=== PATIENT | male | born 1955 | race Caucasian/White ===

== ENCOUNTER 2019-04-11 22:38 | Observation (INO) ==
[2019-04-12 01:56] LABS: BASO# 0.02 X1000 (0.0-0.2); BASO% 0.2 % (0.0-0.8); EOS# 0.14 X1000 (0.0-0.7); EOS% 1.5 % (0.0-10.0); HEMATOCRIT 47.5 % (42.0-52.0); HEMOGLOBIN 16.5 g/dL (14.0-18.0); IMM GRAN# 0.02 X1000 (0.0-0.04); IMM GRAN% 0.2 % (0.0-0.5); LYMPH# 1.98 X1000 (1.2-3.4); LYMPH% 21.5 % (20.5-51.1); MCH 31.5 PG (27-31); MCHC 34.7 g/dL (33-37); MCV 90.8 FL (81-99); MONO# 0.59 X1000 (0.11-0.59); MONO% 6.4 % (1.7-9.3); MPV 10.4 FL (7.4-10.4); NEUT# 6.46 X1000 (1.4-6.5); NEUT% 70.2 % (42.2-75.2); PLT 157 X1000 (130-400); RBC 5.23 XMIL (4.7-6.1); RDW 13.6 % (11.5-14.5); WBC 9.21 X1000 (4.8-10.8)
[2019-04-12 02:02] LABS: AGAP 12; CHLORIDE 99 mmol/L (98-107); SODIUM 139 mmol/L (136-145); TCO2 28 mmol/L (25-35)
[2019-04-12 02:03] LABS: ALB/GLOB RATIO 1.8; ALBUMIN 4.2 g/dL (3.5-5.0); ALKALINE PHOSPHATASE 77 U/L (32-122); BUN 18 mg/dL (8-22); CALCIUM 9.1 mg/dL (8.8-10.2); COSMO 280; ESTIMATED GFR > 60; GLUCOSE 112 mg/dL (70-104); GOT 48 U/L (10-34); GPT 28 U/L (10-44); TOTAL BILIRUBIN 0.49 mg/dL (0.20-1.00); TOTAL PROTEIN 6.6 g/dL (6.3-8.3)
[2019-04-12 02:23] LABS: INR 0.97; PROTIME 13.7 Seconds (11.0-16.0)
[2019-04-12 02:27] LABS: CK PROFILE 1211 U/L (24-204)
[2019-04-12] MEDS ORDERED: NS 1,000 ML, NS 1,000 ML IV ONE ×2 (02:37)
[2019-04-12 02:43] LABS: CK INDEX 0.3 (0.0-2.5); CK-MB 3.83 ng/mL (0.0-5.0)
[2019-04-12] MEDS ORDERED: NS 1,000 ML IV SCH ×2 (03:00→05:38)
--- NOTE | 2019-04-12 04:09 | PROVIDER DOCUMENTATION ---
This chart was entered by Dinorah Martínez Scribe, acting as scribe for Remberto Galloway MD. HPI-Syncope/Dizziness - General Chief Complaint: Syncope Stated Complaint: CHEST PAIN/SOB/ BLACKED OUT Time Seen by Provider: 04/12/19 00:25 Source: patient Allergies/Adverse Reactions: Patient Allergies Allergy/AdvReac Type Severity Reaction Status Date / Time No Known Allergies Allergy Verified 11/05/14 04:20 Home Medications: Home Medication List Medication Instructions Recorded Confirmed Last Taken Type RX: Aspirin 81 mg PO DAILY 11/08/12 11/05/14 08/17/14 06:30 History RX: Cyclobenzaprine [Flexeril] 10 mg PO TID 11/08/12 11/05/14 08/16/14 22:00 History RX: Calcium Carbonate/Vitamin D3 1 each PO DAILY 04/18/13 11/05/14 08/17/14 06:30 History [Calcium 1,000 + D3 Caplet] RX: Multivit-Min/FA/Lycopene/Lut 1 each PO DAILY 04/18/13 11/05/14 08/17/14 06:30 History [Centrum Silver Tablet] RX: [place]-3 Fatty Acids [Fish Oil 1,750 mg PO DAILY 04/18/13 11/05/14 08/17/14 06:30 History Concentrate] RX: Tamsulosin [Flomax] 0.4 mg PO DAILY 04/18/13 11/05/14 08/16/14 22:00 History RX: Hydrocodone/Acetaminophen 1 - 2 each PO Q4-6H PRN PRN #60 04/26/13 11/05/14 08/16/14 22:30 Rx [[place] 10-325 Tablet] tablet RX: Omeprazole [Prilosec] 20 mg PO BID #0 capsule 11/05/14 Unknown Rx RX: Sucralfate [Carafate Liquid] 1 gm PO Q6HR #0 udc 11/05/14 Unknown Rx - History of Present Illness-Syncope/Dizzy Nature of Presenting Problem: pt is a 64 yr old male presenting with complaint of syncope tonight,. pt reports he recalls walking then waking up on the ground, unknown how long he was out. pt reports over last 2 days he has gotten over heated while working outside in his garden, muscle spasms and headaches at night after coming inside. pt reports tonight he felt weak, headache and muscle spams prior to episode. Prior Episodes: reports: single episode today Onset/Duration: reports: this evening Timing: reports: improving Position/Activity at time of episode: reports: activity (walking) Symptoms prior to episode: reports: headache, other (weak). denies: nausea/vomiting Context: reports: lost consciousness Loss of Consciousness: unsure (pt reports he is unsure how long he was unconscious) Location of injury. (If syncope resulted in an injury.): reports: head Current Symptoms: reports: weakness, headache. denies: chest pain, abdominal pain, nausea, dizzy, blurred vision Recently Seen Here or By Another Healthcare Provider: No - Dizziness Severity in ED: reports: mild Dizziness Related Current/Associated Symptoms: reports: lightheaded, headache Any recent trauma/injury?: reports: minor, to head Modifying Factors: improves with: nothing Patient usually:: reports: walks without assistance Review of Systems - Adult - REVIEW OF SYSTEMS - ADULT Constitutional: reports: fatique. denies: fever Eyes: denies: blurred vision, double vision Ears, Nose, Mouth & Throat: reports: no symptoms reported Cardiovascular: reports: syncope. denies: chest pain, palpitations Respiratory: denies: cough, shortness of breath Gastrointestinal: denies: abdominal pain, nausea, vomiting Genitourinary: reports: no symptoms reported Musculoskeletal: reports: muscle aches, other (muscle cramping). denies: back pain, joint pain, neck pain Integumentary: reports: no symptoms reported Neurological: reports: headache/migraines, syncope. denies: dizziness/vertigo Psychiatric: reports: no symptoms reported Endocrine: reports: no symptoms reported Hematologic/Lymphatic: reports: no symptoms reported Allergic/Immunologic: reports: no symptoms reported All Other Systems: Reviewed and Negative Past History - Adult - PAST MEDICAL HISTORY-ADULT Review of Records: reports: Old Records Reviewed, Nursing Assessment Review, Medications Reviewed, Social history reviewed & non-contributory. Major Childhood Illnesses: reports: denies history Cardiovascular: reports: denies history, HTN Respiratory: reports: denies history Gastrointestinal: reports: denies history Obstetrical/Gynecological: reports: denies history Genitourinary: reports: denies history Musculoskeletal: reports: denies history Neurological: reports: headaches/migraines Endocrine/Immune: reports: denies history Other Conditions: reports: denies history - IMMUNIZATION STATUS Childhood Immunizations: UTD Flu Vaccine: See Nurse Assessment - FAMILY HISTORY Family History: CAD over 55 yo - SOCIAL HISTORY Living Situation: family Physical Exam-General - PHYSICAL EXAM-ADULT Initial Vital Signs Reviewed: Yes - CONSTITUTIONAL General Appearance: alert, no apparent distress, obese - EYES Eyes: PERRL/EOMI - HEAD, EARS, NOSE, MOUTH & THROAT HENMT: normocephalic/atraumatic, moist mucous membranes - NECK Neck: non-tender, full range of motion, supple, normal inspection - RESPIRATORY Respiratory: chest non-tender, lungs clear, normal breath sounds, no respiratory distress, no accessory muscle use - CARDIOVASCULAR Cardiovascular: normal peripheral pulses, regular rate, rhythm, no edema - GASTROINTESTINAL (ABDOMEN) Abdominal Exam: normal bowel sounds, non tender, soft - LYMPHATIC Lymphatic: no adenopathy - MUSCULOSKELETAL Back Exam: normal inspection, no CVA tenderness, no vertebral tenderness Extremity: normal range of motion, non-tender, normal gait, normal inspection Peripheral Pulses: radial (R): 2+, radial (L): 2+ - SKIN Integumentary: normal color, normal turgor, warm/dry - PSYCHIATRIC Psych/Mental Status: normal mood/affect Progress - PLAN OF CARE/RESULTS Progress/Plan/Lab Results: Vital Signs - 8 hr 04/11/19 22:52 Temperature 98.1 F Pulse Rate 86 Respiratory Rate 16 Blood Pressure 130/89 O2 Sat by Pulse Oximetry 98 Laboratory Results - last 24 hr 04/11/19 04/12/19 04/12/19 23:04 01:32 01:32 WBC 9.21 RBC 5.23 Hgb 16.5 Hct 47.5 MCV 90.8 MCH 31.5 H MCHC 34.7 RDW Std Deviation 13.6 Plt Count 157 MPV 10.4 Immature Gran % (Auto) 0.2 Neut % (Auto) 70.2 Lymph % (Auto) 21.5 [place] % (Auto) 6.4 Eos % (Auto) 1.5 Baso % (Auto) 0.2 Immature Gran # (Auto) 0.02 Neut # (Auto) 6.46 Lymph # (Auto) 1.98 [place] # (Auto) 0.59 Eos # (Auto) 0.14 Baso # (Auto) 0.02 PT INR PTT (Actin FS) D-Dimer, Quantitative 0.45 Sodium Potassium Chloride Carbon Dioxide Anion Gap BUN Creatinine Estimated GFR/1.73 m2 BUN/Creatinine Ratio Glucose POC Glucose 114 H Calculated Osmolality Calcium Total Bilirubin AST ALT Alkaline Phosphatase Creatine Kinase Creatine Kinase Index CK-MB (CK-2) Troponin T Total Protein Albumin Globulin Albumin/Globulin Ratio 04/12/19 04/12/19 04/12/19 01:32 01:32 01:32 WBC RBC Hgb Hct MCV MCH MCHC RDW Std Deviation Plt Count MPV Immature Gran % (Auto) Neut % (Auto) Lymph % (Auto) [place] % (Auto) Eos % (Auto) Baso % (Auto) Immature Gran # (Auto) Neut # (Auto) Lymph # (Auto) [place] # (Auto) Eos # (Auto) Baso # (Auto) PT 13.7 INR 0.97 PTT (Actin FS) 27.0 D-Dimer, Quantitative Sodium 139 Potassium 4.0 Chloride 99 Carbon Dioxide 28 Anion Gap 12 BUN 18 Creatinine 1.0 Estimated GFR/1.73 m2 > 60 BUN/Creatinine Ratio 18 Glucose 112 H POC Glucose Calculated Osmolality 280 Calcium 9.1 Total Bilirubin 0.49 AST 48 H ALT 28 Alkaline Phosphatase 77 Creatine Kinase 1211 H Creatine Kinase Index 0.3 CK-MB (CK-2) 3.83 Troponin T < 0.010 Total Protein 6.6 Albumin 4.2 Globulin 2.4 Albumin/Globulin Ratio 1.8 Orders Category Date Time Status ED: Orthostatic Vital Signs (E as directed Care 04/12/19 00:[address] HEAD/C-SPINE W/O CONTRAST [CT] Stat Exams 04/11/19 23:09 Taken CBC WITH ELECTRONIC DIFF [HEME] Stat Lab 04/12/19 01:32 Completed CK PROFILE [SP CHEM] Stat Lab 04/12/19 01:32 Completed COMPREHENSIVE METABOLIC PANEL [CHEM] Stat Lab 04/12/19 01:32 Completed D-DIMER [COAG] Stat Lab 04/12/19 01:32 Completed MYOGLOBIN URINE [VELEZ] Stat Lab 04/12/19 03:54 Uncollected PROTIME WITH INR [COAG] Stat Lab 04/12/19 01:32 Completed PTT [COAG] Stat Lab 04/12/19 01:32 Completed TROPONIN T Stat Lab 04/12/19 01:32 Completed URINALYSIS W/POSS RFLX CULT [URINALYSIS] Stat Lab 04/12/19 00:31 Uncollected 0.9% Sodium Chloride Inj [Ns] 1,000 ml Med 04/12/19 03:00 Active IV Q1H EKG [EKG] Stat Ther 04/11/19 22:59 Ordered Result Diagrams: 04/12/19 01:32 04/12/19 01:32 - EKG 1 Time of EKG reading by physician:: 23:00 EKG Read and Signed by:: Remberto Galloway EKG Interpretation (*Must complete 3 of following elements*): Abnormal Rate: 85 Rhythm: nsr Hersey: left QRS: normal SD Interval: normal ST Wave: normal - CT/MRI 1 CT Study: Cervical Spine, Head Impression: Normal, See EMR Report Comparison with other Films: no changes (08/17/14) Departure - Departure Date of Disposition Decision: 04/12/19 Time of Disposition Decision: 04:08 DIAGNOSIS: Syncope, Rhabdomyolysis Disposition: ADMITTED INPATIENT 09 Certified Medical Emergency: Emergent Condition: Serious Referrals and Follow-Ups: Mitul Amor MD [Primary Care Provider] - - Critical Care Note This patient required my direct & personal management of CC.: Yes Attestation - Physician/ JOSIAS Attestation Patient care was provided by Advanced Practice Provider:: No The physician spent face to face time with patient:: Yes Advanced Practice Provider documentation review:: Supervising physician onsite and consulted in the evaluation and care of this patient. The physician did have a face to face encounter with the patient. This chart was documented by the indicated scribe, (Dinorah Martínez Scribe) and accurately reflects the services I performed and decisions made by me, Remberto Nicholas MD, as attested by the provider's signature.
--- NOTE | 2019-04-12 04:48 | HISTORY AND PHYSICAL ---
PRIMARY CARE PHYSICIAN: Dr. Amor. CHIEF COMPLAINT: Passed out. HISTORY OF PRESENTING ILLNESS: A 64-year-old male without any significant past medical history who presented to emergency department with an episode where he all of a sudden passed out. The patient states that he does not recollect what exactly happened, however he states the prior day he was working out in the heat and he felt that his muscles were cramping and did not feel well. He did not come to the emergency room that day because he thought that his symptoms and cramps would improve. However his symptoms worsened and he come to the ER. He had laboratories done which did show he had elevated CK of 1211. Due to his presenting symptoms, it was thought that we will place him for observation for further evaluation and management. At the time of my examination, patient denied any headache, fever, chills, chest pain, shortness of breath, hemoptysis or weight changes, but complained of some muscle cramps and not feeling well. PAST MEDICAL HISTORY: None. PAST SURGICAL HISTORY: Bilateral knee replacement and back surgery. ALLERGIES: No known drug allergies. CURRENT MEDICATIONS: None. SOCIAL HISTORY: No history of smoking. Admits to social alcohol use. Denies any illicit drug use. FAMILY HISTORY: No history of coronary disease. REVIEW OF SYSTEMS: Fourteen point review of systems is listed as in HPI. Other systems negative. PHYSICAL EXAMINATION: GENERAL: Cooperative friendly male. He is resting comfortably now. VITAL SIGNS: Temperature 98.1 degrees, pulse 86, respirations 16, and blood pressure 130/89. HEENT: Atraumatic, normocephalic. Extraocular movements intact. PERRLA. NECK: No masses. CHEST: Clear to auscultation. CARDIOVASCULAR: Regular rate and rhythm. ABDOMEN: Soft. Positive bowel sounds. EXTREMITIES: No edema. NEUROLOGIC: Nonfocal. : No bladder distention. SKIN: Warm. LABORATORIES AND STUDIES: WBCs 9.21, hemoglobin 16.5, hematocrit 47.5, and platelets 157,000. CPK is 1211. Sodium 139, potassium 4.0, chloride 99, CO2 is 28, BUN is 18, creatinine is 1.0, and glucose 112. ASSESSMENT: A 64-year-old male without any significant past medical history who had presented to the emergency department due to patient having an episode where he passed out. Apparently, he over did it the previous working out in his yard, and possibly had heat exhaustion. He states that he was having muscle cramps. He was evaluated in the emergency department. He was noted to have elevated CPK suspicious for mild rhabdomyolysis. Subsequently, it was thought that we will place him for observation for further evaluation and management. ASSESSMENT: 1. Syncopal episode. 2. Heat exhaustion. 3. Mild rhabdomyolysis. PLAN: 1. We will admit patient to medical floor with telemetry. 2. Continue with supportive treatment with IV fluids, antiemetics as needed. 3. We will monitor his CPK. 4. Place patient on DVT prophylaxis with SCD's. 5. We will continue to follow and reassess. Make further recommendations based on patient's clinical course. cc: Mario Cavanaugh MD MTDD
[2019-04-12 06:30] LABS: URINE SOURCE CLEAN CATCH
[2019-04-12 06:34] LABS: BILIRUBIN URINE NEGATIVE (NEGATIVE); BLOOD URINE NEGATIVE (NEGATIVE); COLOR YELLOW; GLUCOSE URINE NEGATIVE (NEGATIVE); KETONE URINE NEGATIVE (NEGATIVE); LEUKOCYTES URINE TRACE (NEGATIVE); NITRITE URINE NEGATIVE (NEGATIVE); PROTEIN URINE NEGATIVE (NEGATIVE); SP GRAVITY URINE 1.019; TURBIDITY URINE CLEAR (CLEAR); UROBILINOGEN URINE NORMAL (NORMAL)
[2019-04-12 06:36] LABS: UR EPITHELIAL CELLS <10 /HPF (<10); URINE BACTERIA NEGATIVE /HPF; URINE RBC <10 /HPF (<10); URINE WBC <10 /HPF (<10)
--- NOTE | 2019-04-12 07:10 | EKG Report ---
Test Performed on : 04/11/2019 10:58:34 PM Test Reason : syncope Blood Pressure : / mmHG Vent. Rate : 085 BPM Atrial Rate : 085 BPM P-R Int : 174 ms QRS Dur : 102 ms QT Int : 384 ms P-R-T Axes : 044 -37 030 degrees QTc Int : 456 ms Normal sinus rhythm. Left axis deviation Abnormal ECG When compared with ECG of 05-NOV-2014 11:04, No significant change was found Unconfirmed Result
[2019-04-12 07:46] VITALS: BP 133/81
--- NOTE | 2019-04-12 07:59 | Diag Imaging Result Doc PS360 ---
EXAM: CT HEAD/C-SPINE W/O CONTRAST 04/11/2019 HISTORY: FALL TECHNIQUE: This exam was performed using automated exposure control, adjustment of mA or kV according to patient size, and/or use of iterative reconstruction technique. COMMENT: There is no evidence of mass effect, bleed, or abnormal extra-axial fluid collection. Compared to 08/17/2014 the appearance the brain has not changed significantly. There is a mucous retention cyst in the right sphenoid sinus. The calvarium is intact. 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 There is severe facet arthropathy on the left at the C2-3 level and bilateral foraminal stenosis is present at C3-4. There is a large anterior osteophyte present at C5-6 and this is also true to a lesser extent at C4-5 and C6-7. The appearance of the cervical spine has not changed significantly since 08/17/2014. IMPRESSION: No evidence of acute intracranial disease. Degenerative changes in the cervical spine as described. Electronically signed by Topher Cruz 04/12/2019 7:56 AM
--- NOTE | 2019-04-12 11:09 | DISCHARGE SUMMARY ---
ADMISSION DATE: 04/12/2019 DISCHARGE DATE: 04/12/2019 He is a patient of Dr. Mitul Flanagan. He is a 64-year-old white male who came to the emergency room. He had muscle cramping. He had worked 2 days pretty hard in the garden that they have for the [employer] and came in and had a transient episode I think of syncope. It sounds like it may have been vasovagal syncope, but he had rhabdomyolysis with CK above 1000 and appeared intravascularly volume depleted. Rest of lab unremarkable. He felt much better with IV fluids. Did not see any focal neurologic deficits or evidence of coronary ischemia. Ford he could go home on 04/12/2019. Encourage hydration and rest for this weekend. cc: Frederick Roberson MD
--- NOTE | 2019-04-12 11:10 | PROGRESS NOTE ---
DATE: 04/12/2019 SUBJECTIVE: Patient admitted on the morning of 04/12/2019, patient of Dr. Mitlu Amor. This is a 64- year-old, who apparently passed out without any significant past medical history, presented to the emergency room with an episode where he also had passed out. The patient states he did not recollect exactly what happened, however states that prior day was working hard in his garden as a little garden for the [employer]. Did not feel well, had some cramping and went to work the next day. He had an elevated CK of 1211. Placed him on fluids and IV liquids, so appears he had heat exhaustion, mild rhabdomyolysis. EXAM: Vital Signs: Today temperature 97.8 degrees, pulse 86, respirations 19, blood pressure 133/81. Eyes: Pupils are equal and round. Lungs: Clear in all lung [place]ver[place]. Cardiovascular: Regular rhythm and rate without murmur or S3. Abdomen: Soft. Skin: Warm and dry. No significant orthostasis. LABORATORY DATA: Reviewed from the third. White count 9210, hematocrit 47 platelet count 157,000. Sodium 139, potassium 4.0, chloride 99. BUN 18, creatinine 1.0, blood sugar 112, calcium 9.1. AST 48, ALT was 28, alkaline phosphatase 77. CK was 905. Urinalysis unremarkable. No evidence of acute intracranial disease. Degenerative changes in cervical spine as described. ASSESSMENT/PLAN: 1. Heat exhaustion. 2. Rhabdomyolysis, which is mild. Review of lab from this morning: CK has come down nicely to 900. DISPOSITION: I think he can probably go home today. Continue normal saline at 125 mL an hour. Note that his electrolytes look good. cc: Frederick Roberson MD
== END 2019-04-12 13:46 | disposition home or self-care (01) ==
LOC: ED 22:38 → 3N 22:38 → SUATTDRO 04-12 05:06
PROVIDERS: ATTEND Emergency Medicine
CPT/HCPCS: 70450; 72125; 80053; 81001; 82550; 82553; 82948; 84484; 85025; 85379; 85610; 85730; 87088; 93005; J7030; XXXXX

== ENCOUNTER 2019-09-19 15:29 | Observation (INO) ==
--- NOTE | 2019-09-19 16:57 | Diag Imaging Result Doc PS360 ---
EXAM: CT HEAD W/O CONTRAST 09/19/2019 HISTORY: syncope TECHNIQUE: This exam was performed using automated exposure control, adjustment of mA or kV according to patient size, and/or use of iterative reconstruction technique. COMMENT: There is no evidence of mass effect, bleed, or abnormal extra-axial fluid collection. Compared to 04/12/2019 there has been no significant change in the appearance of the brain. The visualized paranasal sinuses are clear with the exception of a mucous retention cyst in the right sphenoid sinus which was present on the previous study. The calvarium is intact. IMPRESSION: No evidence of acute intracranial disease. Electronically signed by Topher Cruz 09/19/2019 4:55 PM
[2019-09-19 17:03] LABS: URINE SOURCE CLEAN CATCH
[2019-09-19 17:11] LABS: BASO# 0.02 X1000 (0.0-0.2); BASO% 0.4 % (0.0-0.8); EOS# 0.08 X1000 (0.0-0.7); EOS% 1.4 % (0.0-10.0); HEMATOCRIT 46.7 % (42.0-52.0); HEMOGLOBIN 15.7 g/dL (14.0-18.0); LYMPH# 1.99 X1000 (1.2-3.4); LYMPH% 35.5 % (20.5-51.1); MCH 31.7 PG (27-31); MCHC 33.6 g/dL (33-37); MCV 94.3 FL (81-99); MONO# 0.42 X1000 (0.11-0.59); MONO% 7.5 % (1.7-9.3); MPV 10.8 FL (7.4-10.4); NEUT# 3.09 X1000 (1.4-6.5); NEUT% 55.2 % (42.2-75.2); PLT 158 X1000 (130-400); RBC 4.95 XMIL (4.7-6.1); RDW 13.7 % (11.5-14.5)
[2019-09-19 17:11] LABS: BILIRUBIN URINE NEGATIVE (NEGATIVE); BLOOD URINE NEGATIVE (NEGATIVE); COLOR YELLOW; GLUCOSE URINE NEGATIVE (NEGATIVE); KETONE URINE NEGATIVE (NEGATIVE); LEUKOCYTES URINE NEGATIVE (NEGATIVE); NITRITE URINE NEGATIVE (NEGATIVE); PH URINE 8.5; PROTEIN URINE NEGATIVE (NEGATIVE); SP GRAVITY URINE 1.014; TURBIDITY URINE HAZY (CLEAR); UROBILINOGEN URINE NORMAL (NORMAL)
[2019-09-19 17:12] LABS: UR EPITHELIAL CELLS <10 /HPF (<10); URINE BACTERIA NEGATIVE /HPF; URINE RBC <10 /HPF (<10); URINE WBC <10 /HPF (<10)
[2019-09-19 17:34] LABS: ALB/GLOB RATIO 1.9; BUN 11 mg/dL (8-22); CREATININE 1.1 mg/dL (0.7-1.2); ESTIMATED GFR > 60; POTASSIUM 4.3 mmol/L (3.5-5.1); TOTAL BILIRUBIN 0.45 mg/dL (0.20-1.00)
[2019-09-19 17:59] LABS: FREE T4 1.12 ng/dL (0.93-1.70); TSH 1.71 uIUmL (0.27-4.20)
--- NOTE | 2019-09-19 18:16 | Diag Imaging Result Doc PS360 ---
EXAM: CHEST-2 VIEWS HISTORY: cp TECHNIQUE: Two views COMPARISON: 08/29/2019 FINDINGS: The lungs are hyperexpanded. The heart is not enlarged. The vessels are not distended. There are no infiltrates. No pleural effusions. IMPRESSION: No acute abnormality. Electronically signed by Dre Ca 09/19/2019 6:14 PM
[2019-09-19 19:10] LABS: AGAP 17; ALBUMIN 4.3 g/dL (3.5-5.0); ALKALINE PHOSPHATASE 60 U/L (32-122); CALCIUM 9.4 mg/dL (8.8-10.2); CHLORIDE 103 mmol/L (98-107); COSMO 283; GLUCOSE 102 mg/dL (70-104); GOT 27 U/L (10-34); GPT 24 U/L (10-44); MAGNESIUM 2.3 mg/dL (1.5-2.7); PHOSPHORUS 2.6 mg/dL (2.7-4.5); SODIUM 142 mmol/L (136-145); TCO2 22 mmol/L (25-35); TOTAL PROTEIN 6.6 g/dL (6.3-8.3)
[2019-09-19] MEDS ORDERED: G.I. COCKTAIL PO ONE (19:54)
--- NOTE | 2019-09-19 19:58 | PROVIDER DOCUMENTATION ---
This chart was entered by Gwendolyn Paige Scribe, acting as scribe for Get Jaquez CRNP. HPI-Abdominal Pain/GI Problem - General Chief Complaint: Syncope Stated Complaint: SYNCOPE Time Seen by Provider: 09/19/19 16:03 Source: patient Allergies/Adverse Reactions: Patient Allergies Allergy/AdvReac Type Severity Reaction Status Date / Time No Known Allergies Allergy Verified 08/29/19 19:31 Home Medications: Home Medication List Medication Instructions Recorded Confirmed Last Taken Type Cyclobenzaprine [Flexeril] 10 mg PO TID 11/08/12 11/05/14 08/16/14 22:00 History Calcium Carbonate/Vitamin D3 1 each PO DAILY 04/18/13 11/05/14 08/17/14 06:30 History [Calcium 1,000 + D3 Caplet] Multivit-Min/FA/Lycopene/Lut 1 each PO DAILY 04/18/13 11/05/14 08/17/14 06:30 History [Centrum Silver Tablet] [place]-3 Fatty Acids [Fish Oil 1,750 mg PO DAILY 04/18/13 11/05/14 08/17/14 06:30 History Concentrate] Tamsulosin [Flomax] 0.4 mg PO DAILY 04/18/13 11/05/14 08/16/14 22:00 History Hydrocodone/Acetaminophen [[place] 1 - 2 each PO Q4-6H PRN PRN #60 04/26/13 11/05/14 08/16/14 22:30 Rx 10-325 Tablet] tablet Omeprazole [Prilosec] 20 mg PO BID #0 capsule 11/05/14 Unknown Rx Sucralfate [Carafate Liquid] 1 gm PO Q6HR #0 udc 11/05/14 Unknown Rx - History of Present Illness-ABD Nature of Presenting Problems: Patient is a 64 year old male who presents to the ED via EMS after having a syncopal episode. States having epigastric pain that intermittently radiates to left shoulder. Reports having an EGD by Dr. Sheikh that resulted as normal. States Dr. Sheikh increased his GERD medication. Denies improvement of symptoms. EMS states giving patient nitro and aspirin prior to arrival. Abdominal Pain Onset Location: reports: epigastric Pain Radiation: reports: shoulder (left) Quality of Pain: reports: aching Severity in ED: reports: mild Onset/Duration: reports: unsure Timing: reports: still present, intermittent Activities at Onset: reports: light activity Associated Symptoms: reports: nausea, syncope, vomiting Bruising or Bleeding Gums?: No Similar Symptoms Previously?: Yes Recently seen or treated by another doctor?: Yes Review of Systems - Adult - REVIEW OF SYSTEMS - ADULT Constitutional: reports: no symptoms reported. denies: chills, fever Eyes: reports: no symptoms reported. denies: decreased vision Ears, Nose, Mouth & Throat: reports: no symptoms reported. denies: ear discharge, ear pain, epistaxis Cardiovascular: reports: see HPI, chest pain, syncope Respiratory: reports: no symptoms reported Gastrointestinal: reports: see HPI, abdominal pain, nausea, vomiting. denies: diarrhea Genitourinary: reports: no symptoms reported Musculoskeletal: reports: no symptoms reported Integumentary: reports: no symptoms reported Neurological: reports: see HPI, syncope. denies: dizziness/vertigo, headache/migraines Psychiatric: reports: no symptoms reported Endocrine: reports: no symptoms reported Hematologic/Lymphatic: reports: no symptoms reported Allergic/Immunologic: reports: no symptoms reported All Other Systems: Reviewed and Negative Past History - Adult - PAST MEDICAL HISTORY-ADULT Review of Records: reports: Old Records Reviewed, Nursing Assessment Review, Medications Reviewed, Social history reviewed & non-contributory. Major Childhood Illnesses: reports: denies history Cardiovascular: reports: denies history Respiratory: reports: denies history Gastrointestinal: reports: GERD Obstetrical/Gynecological: reports: denies history Genitourinary: reports: denies history Musculoskeletal: reports: denies history Neurological: reports: headaches/migraines Endocrine/Immune: reports: denies history Other Conditions: reports: denies history - PRIOR SURGERIES/PROCEDURES Surgical/Procedure History: reports: reviewed, not pertinent, EGD, joint replacement - IMMUNIZATION STATUS Childhood Immunizations: UTD Flu Vaccine: See Nurse Assessment - FAMILY HISTORY Family History: CAD over 55 yo - SOCIAL HISTORY Smoking: denies Substance Use: denies Living Situation: family Physical Exam-General - PHYSICAL EXAM-ADULT Initial Vital Signs Reviewed: Yes - CONSTITUTIONAL General Appearance: alert, no apparent distress, other (emesis on shirt). negative: lethargic - HEAD, EARS, NOSE, MOUTH & THROAT HENMT: normocephalic/atraumatic, moist mucous membranes. negative: angioedema - RESPIRATORY Respiratory: chest non-tender, lungs clear, normal breath sounds, no respiratory distress. negative: rales, wheezing - CARDIOVASCULAR Cardiovascular: normal peripheral pulses, regular rate, rhythm, no edema, no gallop. negative: tachycardia, systolic murmur - GASTROINTESTINAL (ABDOMEN) Abdominal Exam: normal bowel sounds, non tender, soft. negative: distended, rigid - MUSCULOSKELETAL Extremity: non-tender, normal inspection. negative: deformity, pedal edema Peripheral Pulses: radial (R): 2+, radial (L): 2+, dorsalis-pedis (R): 2+, dorsalis-pedis (L): 2+ - SKIN Integumentary: normal color, diaphoresis. negative: jaundice, pallor - NEUROLOGIC Neurologic: grossly normal. negative: aphasia, facial droop - PSYCHIATRIC Psych/Mental Status: normal mood/affect, oriented x 3. negative: anxious Progress - PLAN OF CARE/RESULTS Progress/Plan/Lab Results: Orders Category Date Time Status Nursing- Obtain EKG ONCE Care 09/19/19 16:24 Active CHEST-2 VIEWS [RAD] Stat Exams 09/19/19 16:[address] HEAD W/O CONTRAST [CT] Stat Exams 09/19/19 16:32 Taken CBC WITH ELECTRONIC DIFF [HEME] Stat Lab 09/19/19 16:24 Uncollected CK PROFILE [SP CHEM] Stat Lab 09/19/19 16:24 Uncollected CK TOTAL [CHEM] Stat Lab 09/19/19 16:24 Uncollected COMPREHENSIVE METABOLIC PANEL [CHEM] Stat Lab 09/19/19 16:24 Uncollected FREE T4 Stat Lab 09/19/19 16:24 Uncollected MAGNESIUM [CHEM] Stat Lab 09/19/19 16:24 Uncollected PHOSPHORUS [CHEM] Stat Lab 09/19/19 16:24 Uncollected TROPONIN T Stat Lab 09/19/19 16:24 Uncollected TSH Stat Lab 09/19/19 16:24 Uncollected UA NIMS W/REFLEX CULT [URINALYSIS] Stat Lab 09/19/19 16:24 Uncollected URINE DRUG SCREEN PL Stat Lab 09/19/19 16:24 Uncollected EKG [EKG] Stat Ther 09/19/19 16:24 Ordered patient verbalizes an understanding of POC and agrees with treatment rendered here today. He will be admitted to the hospital. Result Diagrams: 09/19/19 16:35 09/19/19 16:35 - REASSESSMENT Reassessment #1 Time Reassessed: 18:00 Status: unchanged Reassessment #2 Time Reassessed: 19:58 Status: worsening (c/o epigastric pain) - EKG 1 Time of EKG reading by physician:: 15:53 EKG Read and Signed by:: Alireza Burk EKG Interpretation (*Must complete 3 of following elements*): Abnormal Rate: 70 Rhythm: NSR Cory: left OK Interval: normal Comments: early transition - CT/MRI 1 CT Study: Head Impression: See EMR Report ( EXAM: CT HEAD W/O CONTRAST 09/19/2019 HISTORY: syncope TECHNIQUE: This exam was performed using automated exposure control, adjustment of mA or kV according to patient size, and/or use of iterative jaun nstruction technique. COMMENT: There is no evidence of mass effect, bleed, or abnormal extra-axial fluid collection. Compared to 04/12/2019 there has been no significant change in the appearance of the brain. The visualized paranasal sinuses are clear with the exception of a mucous retention cyst in the right sphenoid sinus which was present on the previous study. The calvarium is intact. IMPRESSION: No evidence of acute intracranial disease. Electronically signed by Topher Cruz 09/19/2019 4:55 PM 09/19/19 1655 Interpreting Physician: Topher Cruz MD Dictated Date/Time: 09/19/191652 cc: Get Jaquez; Mitul Amor MD) - CONSULTS/PCP/HOSPITALIST Notification #1 *Consult/PCP/Hospitalist*: Dr Rachel Time Discussed: 19:55 Reason/Comments: Syncope, CP Consult Disposition: Admit Departure - Departure Date of Disposition Decision: 09/19/19 Time of Disposition Decision: 19:55 DIAGNOSIS: Chest pain Qualifiers: Chest pain type: unspecified Qualified Code(s): R07.9 - Chest pain, unspecified Syncope Qualifiers: Syncope type: unspecified Qualified Code(s): R55 - Syncope and collapse Disposition: ADMITTED INPATIENT 09 Certified Medical Emergency: Emergent Condition: Stable Referrals and Follow-Ups: Mitul Amor MD [Primary Care Provider] - - Critical Care Note This patient required my direct & personal management of CC.: No Attestation - Physician/ JOSIAS Attestation Patient care was provided by Advanced Practice Provider:: Yes Advanced Practice Provider:: Get Jaquez Advanced Practice Provider documentation review:: The Mid-level provider documentation, treatment plan and medical decision making was reviewed by the physician who agrees with all treatment and medical decision making by the MLP. The physician spent face to face time with patient:: No Advanced Practice Provider documentation review:: Supervising physician onsite and consulted in the evaluation and care of this patient. The physician did not have a face to face encounter with the patient. This chart was documented by the indicated scribe, (Gwendolyn Paige Scribe) and accurately reflects the services I performed and decisions made by , Get Jaquez CRNP, as attested by the provider's signature.
[2019-09-19 20:20] LABS: UR AMPHETAMINES QUAL NONE DETECTED (NONE DETECT); UR BARBITUATES QUAL NONE DETECTED (NONE DETECT); UR BENZODIAZEPIN QUAL NONE DETECTED (NONE DETECT); UR CANNABINOIDS QUAL NONE DETECTED (NONE DETECT); UR COCAINE QUAL NONE DETECTED (NONE DETECT); UR METHADONE QUAL NONE DETECTED (NONE DETECT); UR OPIATES QUAL PRESUMPTIVE POSITIVE (NONE DETECT); UR OXYCODONE QUAL NONE DETECTED (NONE DETECT); UR PCP QUAL NONE DETECTED (NONE DETECT)
[2019-09-19] MEDS: NS 1,000 ML IV SCH (21:45)
[2019-09-20] MEDS ORDERED: RESTORIL PO ONE (00:22)
[2019-09-20] MEDS ORDERED: SODIUM CHLORIDE 0.9% INJ SCH (07:00)
[2019-09-20] MEDS: PROTONIX IV SCH (07:42)
[2019-09-20] MEDS: NITROGLYCERIN TOP SCH ×3 (07:51→19:32)
[2019-09-20] MEDS: NORCO-7.5 PO PRN ×3 (08:01→21:27)
[2019-09-20] MEDS: NEUTRA-PHOS PO SCH ×5 (08:07→21:27)
[2019-09-20] MEDS: COREG PO SCH ×2 (08:11→21:27)
--- NOTE | 2019-09-20 08:36 | EKG Report ---
Test Performed on : 09/20/2019 08:23:53 AM Test Reason : syncope Blood Pressure : / mmHG Vent. Rate : 063 BPM Atrial Rate : 063 BPM P-R Int : 192 ms QRS Dur : 112 ms QT Int : 410 ms P-R-T Axes : 047 -36 045 degrees QTc Int : 419 ms Normal sinus rhythm. Left axis deviation Abnormal ECG Confirmed by Mayda ROJO, Prakash ([id number]) on 09/21/2019 10:33:56 AM
--- NOTE | 2019-09-20 08:37 | EKG Report ---
Test Performed on : 09/19/2019 3:53:14 PM Test Reason : ED. NO EKG ORDER FOR MUSE Blood Pressure : / mmHG Vent. Rate : 070 BPM Atrial Rate : 070 BPM P-R Int : 188 ms QRS Dur : 104 ms QT Int : 404 ms P-R-T Axes : 045 -32 047 degrees QTc Int : 436 ms Normal sinus rhythm. Left axis deviation Abnormal ECG No previous ECGs available Unconfirmed Result
[2019-09-20] MEDS ORDERED: FISH OIL CONCENTRATE PO SCH (09:00)
[2019-09-20] MEDS ORDERED: FLEXERIL PO SCH (09:00)
[2019-09-20] MEDS ORDERED: FLOMAX PO SCH (09:00)
[2019-09-20] MEDS ORDERED: ASPIRIN PO SCH (09:00)
[2019-09-20] MEDS ORDERED: CENTRUM SILVER PO SCH (09:00)
--- NOTE | 2019-09-20 09:57 | Diag Imaging Result Doc PS360 ---
EXAM: MRI BRAIN W/WO CONTRAST INDICATION: syncope COMPARISON: CT head dated 09/19/2019. No prior MRI brain is available for comparison. FINDINGS: There is no evidence of acute infarct. The deep white matter signal is essentially unremarkable. There is no discrete intracranial mass, mass effect, or intracranial hemorrhage. There is no evidence of abnormal intracranial enhancement. There is a tiny sphenoid sinus mucus retention cyst. Surrounding soft tissues and bony structures are essentially unremarkable, otherwise. IMPRESSION: No evidence of acute intracranial pathology and essentially unremarkable, otherwise. Electronically signed by Thai Narayanan 09/20/2019 9:55 AM
--- NOTE | 2019-09-20 10:03 | Diag Imaging Result Doc PS360 ---
EXAM: MRA BRAIN W/O CONTRAST INDICATION: syncope TECHNIQUE: Axial 3-D [id number] images and 3-D MIPS were obtained. COMPARISON: None. FINDINGS: There is no evidence of flow-limiting stenosis, vascular malformation, or aneurysm involving the arteries comprising the [place] including the anterior, middle, and posterior cerebral arteries. The distal ICAs appear widely patent. The left vertebral artery is dominant. The vertebral arteries are unremarkable, otherwise. The basilar artery appears normal. IMPRESSION: Essentially normal MRA brain. Electronically signed by Thai Narayanan 09/20/2019 10:00 AM
--- NOTE | 2019-09-20 10:22 | HISTORY AND PHYSICAL ---
CHIEF COMPLAINT: Brief loss of consciousness. HISTORY OF PRESENT ILLNESS: Mr. Saman Nolasco is a 64-year-old male who has a history of gastroesophageal reflux disease as well as migraine headaches. He presents to the hospital with a history of a brief loss of consciousness which occurred prior to admission. The patient not sure exactly how long the period of loss of consciousness lasted. He describes having some left-sided chest pain prior to the event. He also describes having headaches as well as a dizziness. The patient has had similar such episodes in the past. When he presented to the hospital had a CT scan of the brain done which was negative for any acute intracranial process. Cardiac enzymes have been negative. Urine drug screen positive for opiates. The patient will now be admitted to the floor for further management. PAST MEDICAL HISTORY: 1. Chronic back pain. 2. Benign prostatic hypertrophy. 3. Gastroesophageal reflux disease. PAST SURGICAL HISTORY: He has had back surgery and bilateral knee surgeries. FAMILY HISTORY: Positive for diabetes. ALLERGIES: Patient is allergic to Ambien. SOCIAL HISTORY: No cigarette smoking. No alcohol or drug use. MEDICATIONS: His medications include the following. 1. Cyclobenzaprine 10 mg p.o. 3 times a day. 2. Calcium carbonate with vitamin D 1 daily. 3. Multivitamin (Centrum Silver) 1 tab daily. 4. [place]-3 fatty acid 17 50 mg p.o. daily. 5. Tamsulosin 0.4 mg p.o. daily. 6. Hydrocodone/acetaminophen. 10/325 1 to 2 tabs every 4 6 hours p.r.n. 7. Omeprazole 40 mg p.o. twice a day. 8. Sucralfate 1 g every 6 hours. REVIEW OF SYSTEMS: Constitutional: No fever. 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 Eyes: No blurred vision. ENT: Has impaired hearing. Cardiovascular: Has chest pain. Respiratory: Has cough. GI: No nausea, vomiting, or abdominal pain. : No dysuria. Psychiatric: No anxiety or depression. Dermatology: No skin lesions. Musculoskeletal: No joint pains. Endocrinology: No issues with thyroid or diabetes. Hematology: No bleeding problems. EXAMINATION: Vital Signs Are As Follows: Temperature is 97.6 degrees, pulse 59, respiratory rate 16, blood pressure is 140/70, oxygen saturation is 98%. HEENT: Atraumatic, normocephalic. Extraocular movements intact. No oral lesions noted. Neck: No lymphadenopathy or thyromegaly. Cardiovascular: S1, S2. Respiratory system: Has evidence of good air entry bilaterally. Abdomen: Soft, nontender. No masses felt. Extremities: No evidence of edema. Central nervous system: No obvious focal deficit noted. LABORATORY: WBC is 5.6, hematocrit is 46.7 with a platelet count of 158,000. Sodium is 142, potassium is 4.3, chloride is 103, bicarb 20, BUN is 11, creatinine is 1.1. Phosphorus is 2.6. Urine drug screen positive for opiates. Head CT negative for any acute intracranial process. Chest x-ray: No acute abnormalities noted. ASSESSMENT AND PLAN: 1. Syncope query etiology. Place patient on telemetry. Obtain serial cardiac enzymes. Obtain EKG. Obtain 2D echo of the heart. Carotid Doppler study. An MRI of the brain along with an EEG. 2. Atypical chest pain. Maintain patient on aspirin, beta tavares, nitroglycerin p.r.n. for chest pain. Consult with Cardiology. 3. Gastroesophageal reflux disease. Maintain patient on proton pump inhibitor. 4. Arthralgia. Analgesics as needed. 5. Hypophosphatemia. Replete phosphorus level. 6. Deep vein thrombosis prophylaxis. Sequential compression devices. 7. Gastrointestinal prophylaxis. Proton pump inhibitor. cc: Deric Rachel MD
[2019-09-20] MEDS: NS 1,000 ML IV SCH ×2 (16:09→20:00)
--- NOTE | 2019-09-20 16:34 | ECHO REPORT ---
ORDER DATE: 09/20/2019 ECHOCARDIOGRAPHIC MEASUREMENTS: 1. Interventricular septum 1.1. 2. Left ventricular posterior wall 1. 3. Diastolic diameter 4.8. 4. Left atrium 4. 5. Aorta 3.6. FINDINGS: 1. Normal left ventricular cavity size. Estimated ejection fraction of 65%. There is grade 1 diastolic dysfunction. 2. Aortic valve leaflets are trileaflet. 3. Mitral valve was normal. 4. There is left atrial enlargement. 5. Tricuspid valve was normal. 6. Pulmonic valve was normal. 7. There is no aortic stenosis or regurgitation. There is trace to mild mitral regurgitation. There is mild tricuspid regurgitation. Peak velocity across the tricuspid valve was 2.2 m/second. 8. There is no pericardial effusion or obvious intracardiac mass or thrombus seen. 9. There is no pericardial effusion. cc: MD Deric Montiel MD
--- NOTE | 2019-09-20 19:50 | CARDIOLOGY CONSULTATION ---
DATE: 09/20/2019 CHIEF COMPLAINT: Epigastric pain and syncope. HISTORY: Mr. Nolasco is 61-year-old male who normally follows with Dr. Mitul Amor in [place]. He presented to the emergency room yesterday at about 3:53 p.m. with the complaint that he had suffered a syncopal episode at home. 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 This seems to get better as he decides to go out and walk 2 or 3 miles. He has been belching a lot. Along with the discomfort, he has yesterday experienced an episode of loss of consciousness. It is unclear to him as for how long he was out. This has happened on previous occasions. There has been no previous diagnosis of coronary heart disease. However, in April 2019, this patient was admitted to this hospital with a diagnosis of syncope, and at that time they suspected rhabdomyolysis. Back then, his CPKs were measured at 1211. He has had multiple troponin levels at this time, at least 3 times, all of them negative. His EKG shows sinus rhythm at the time of presentation with a left axis deviation and no ischemic ST changes. He has normal renal function and his chest x-ray has shown no acute abnormality. As far as cardiac testing, he has not had any previous evaluation, and when they discharged him in April of this year, his case was attributed mainly to vasovagal syncope and dehydration. PAST MEDICAL HISTORY: Positive for: 1. Acid reflux. 2. Migraine headaches. 3. He has chronic back pain. 4. Benign prostatic hypertrophy. SURGICAL HISTORY: 1. He has had bilateral knee replacements with good results. 2. He has had back surgery in the past. 3. He has had upper endoscopies in the past. SOCIAL HISTORY: He is and lives by himself. His family is in [place]. He is retired from [employer], on disability. Not a smoker or drinker. FAMILY HISTORY: Noncontributory. ALLERGIES: Negative. HOME MEDICATIONS: At the time of this dictation included: 1. Bentyl 20 mg twice daily. 2. Famotidine 20 mg daily. 3. Guaifenesin/phenylephrine 3 times a day. 4. Hydrocodone every 4 hours as needed. 5. Prilosec 20 twice a day. 6. Carafate 1 g every 6 hours. 7. Flomax 0.4 mg daily. 8. [place]-3 fatty acids. 9. Calcium carbonate. REVIEW OF SYSTEMS: Other than the sensation of gas and the fainting spells, nothing positive. PHYSICAL EXAMINATION: Vital signs: Blood pressure 139/82, pulse 63, respiration 14, temperature 97.9 degrees. General: Patient is awake, alert, oriented, in no distress. HEENT: Unremarkable. Chest: Sounds clear to auscultation and percussion. Heart: Sounds are regular and rhythmic. I do not hear a gallop or murmur. Abdomen: Obese, nontender. Extremities: Show good pulses. No peripheral edema. Neurologic: Nonfocal. Moves all 4 extremities. IMPRESSION: 1. Patient who presents with recurrent epigastric pain. This may represent ischemic coronary pain. 2. Recurrent syncope. This may represent cardiac arrhythmia versus vasovagal syncope. 3. History of arthritis, previous knee replacement. 4. History of chronic back pain. He has had previous back surgery. 5. History of migraine headaches. 6. Suspected gastroesophagitis, acid reflux disease. RECOMMENDATION: At this time, we will review an echocardiogram that was done this morning, and we will arrange for a treadmill exercise stress myocardial perfusion imaging. Depending on the results, we will advise further intervention. If his stress test is negative, he really needs to be evaluated by GI. Further advice will be forthcoming. cc: Ron Thomas MD
--- NOTE | 2019-09-20 20:58 | PROGRESS NOTE ---
DATE: 09/20/2019 SUBJECTIVE: He is a patient of Dr. Mitul Amor. He had a brief loss of conscious, but he states he has had 3 or 4 episodes in the last 4 days where he has passed out. The last one he was at [facility] and he reports he does not have much warning. He does complain of indigestion and heartburn about 2 weeks ago, or maybe less. He had EGD done per Dr. Sheikh in which he had esophageal dilatation. He was having trouble with swallowing and food getting stuck in his esophagus, and since that time he has been on a proton pump inhibitor, but he is still concerned about the swelling and irritation in his throat and esophagus, but he was admitted because of syncopal episode. He does not really report true chest pain. He feels like he has indigestion. He feels like the gas that he has in the esophagus moves up into his left chest. He has not had fever. He has not really had a productive cough, but he has had bronchial irritation and coughing and still discomfort with swallowing. PAST MEDICAL HISTORY: 1. Chronic back pain. 2. Benign prostatic hypertrophy. 3. Gastroesophageal reflux disease and hiatal hernia, recent dilatation and EGD. OBJECTIVE: General: Today, he was sitting up and his main concern was again his swallowing and the irritation in his esophagus and throat. Vital signs: He remains afebrile, temperature 98.6 degrees, pulse 56, respirations 18, blood pressure 140/73. Eyes: Pupils are equal and round. Neck: No distended neck veins. Lungs: Clear in all lung [place]. Cardiovascular: Regular rate without murmur or S3. Abdomen: Soft. Skin: Warm and dry. LABORATORY DATA: I reviewed his lab from admission. White count was 5600, hematocrit was 46, and platelet count was 158,000. Sodium 142, potassium 4.3, chloride 103, BUN 11, creatinine 1.1. Blood sugar was 102. Calcium was 9.4. AST was 27, ALT was 24, alkaline phosphatase was 60. Urine drug screen was negative except positive for opiates, negative for oxycodone, methadone, barbiturates, phencyclidine, amphetamines, benzodiazepines, cocaine, and cannabinoids. Urine was clear. He had a CT of his head when he came in without contrast, and there was no evidence of acute intracranial disease. He had a chest x-ray which was no acute abnormality appreciated. Lungs were hyperexpanded. Heart was not enlarged. Vessels were not distended. There was no infiltrate, no pleural effusion. His brain MRI had no evidence of intracranial pathology, essentially unremarkable. His brain MRA was essentially normal MRA of the brain. ASSESSMENT AND PLAN: 1. Syncopal episode. Echocardiogram done. Normal left ventricular cavity size. Ejection fraction 65%. Grade 1 diastolic dysfunction. No significant valvular dysfunction. There is no aortic stenosis or regurgitation. Mild tricuspid regurgitation. No pericardial effusion and no intracardiac mass or thrombus appreciated. Not sure what caused his syncopal episode, possible vasovagal. Series of blood pressures are 157/92, 114/70, 140/73. Have not revealed any arrhythmia on his monitoring tech. Looking at his medications at home, he is taking hydrocodone for pain and really not on anything in the way of blood pressure medications. 2. Benign prostatic hypertrophy. He is on Flomax. 3. Hiatal hernia, gastroesophageal reflux, with recent dilatation of the esophagus with some irritation there. 4. Chest pain, very atypical. I believe they are planning a myocardial perfusion scan. He is on a proton pump inhibitor. He is on intravenous Protonix at this time, so continue workup. cc: Frederick Roberson MD
[2019-09-21] MEDS: NITROGLYCERIN TOP SCH ×3 (01:01→12:51)
--- NOTE | 2019-09-21 01:29 | EEG REPORT ---
DATE: 09/20/2019 EEG #: [id number] COMMENT: This is a digitally recorded EEG on a 64-year-old patient with reported multiple syncopal episodes. FINDINGS: During waking, medium amplitude 10 hertz posterior rhythm is present bilaterally and reacts at times to eye opening. Background contains polymorphic and rhythmic theta frequencies over the frontal and central regions symmetrically. Drowsing occurred briefly with symmetric features. Stage 2 sleep was not recorded. Hyperventilation did not significantly alter the record. Photic stimulation produced some symmetric entrainment. No definite epileptiform discharge was identified. INTERPRETATION: Normal EEG. CORRELATION: The absence of epileptiform discharges on a single EEG does not exclude a clinical diagnosis of seizures, but there is nothing on this record to suggest the presence of a seizure disorder. cc: MD Deric Mckee III, MD
[2019-09-21 05:40] LABS: INR 1.15; PROTIME 14.8 Seconds (11.0-16.0)
[2019-09-21 05:41] LABS: PTT 27.4 Seconds (22.3-41.8)
[2019-09-21] MEDS: PROTONIX IV SCH (06:16)
[2019-09-21 08:31] VITALS: BP 116/68
[2019-09-21] MEDS ORDERED: LOVENOX SUBQ SCH (09:00)
[2019-09-21] MEDS ORDERED: ASPIRIN PO SCH (09:00)
--- NOTE | 2019-09-21 10:33 | Diag Imaging Result Doc PS360 ---
EXAM: CT THORAX W/O CONTRAST 09/21/2019 HISTORY: non cardiac chest pain/former smoker TECHNIQUE: This exam was performed using automated exposure control, adjustment of mA or kV according to patient size, and/or use of iterative reconstruction technique. COMMENT: The study is compared with the previous examination of 05/27/2012. There is a subcentimeter nodule in the area of the minor fissure which was also present on the previous study and is likely a benign node. Otherwise, there is no evidence of acute pulmonary parenchymal disease. There are no abnormal fluid collections. The mediastinum is stable in appearance. There is a calcified node in the left hilum. The visualized portion of the abdomen is unremarkable. There are spondylotic changes in the thoracic spine. IMPRESSION: No evidence of acute disease. Electronically signed by Topher Cruz 09/21/2019 10:31 AM
[2019-09-21] MEDS: COREG PO SCH (10:52)
[2019-09-21] MEDS: NEUTRA-PHOS PO SCH (10:52)
--- NOTE | 2019-09-21 13:42 | Diag Imaging Result Document ---
PROCEDURE NAME: MYOCARDIAL PERF SCAN, STR/REST - 09/20/2019 INDICATION: Chest pain and syncope. PROCEDURES PERFORMED: 1. Jesus Manuel protocol stress. 2. Two-day stress/rest myocardial perfusion imaging (rest dose 41.2 mCi of technetium-99m, stress dose 43.0 millicuries of technetium-99m) FINDINGS: JESUS MANUEL PROTOCOL STRESS RESULTS: 1. Baseline EKG shows sinus rhythm. 2. Patient exercised for 9.5 minutes, achieving a peak heart rate of 134 which was 87% of age predicted max. He achieved 10.1 METS in early stage IV of the Jesus Manuel protocol. Exercise capacity was 118% of age and sex predicted exercise capacity. 3. Appropriate blood pressure response to exercise. 4. Test was terminated due to fatigue. 5. No anginal complaints occurred during the course of the study. 6. No ischemic-related EKG changes or significant arrhythmias. Occasional PVCs were identified. PERFUSION IMAGING RESULTS: 1. No evidence of abnormal extracardiac uptake. 2. TID ratio is 1.24 but on review of splash images, there is no clear evidence of transient ischemic dilatation. 3. Perfusion imaging demonstrates a mild intensity, small-sized defect involving the inferior apical, mid inferior and basal inferior segments. This defect appears to improve significantly from rest to stress imaging. Wall motion is intact in this area. There is no evidence of ischemia. This could be suggestive of soft tissue attenuation. 4. Normal ejection fraction of 66%. End-diastolic volume 128, end systolic volume of 44. Normal wall motion. cc: MD Donna Rogel PA
--- NOTE | 2019-09-22 18:00 | DISCHARGE SUMMARY ---
ADMISSION DATE: 09/20/2019 DISCHARGE DATE: 09/21/2019 DIAGNOSES: 1. Syncope. 2. Atypical chest pain. 3. Gastroesophageal reflux disease. 4. Arthralgia. 5. Hypophosphatemia. 6. Benign prostatic hypertrophy. 7. Hiatal hernia with recent dilatation of the esophagus. DIAGNOSTICS: 1. Chest x-ray revealed no acute abnormality. Lungs are hyperexpanded. Heart is not enlarged. Vessels are not distended. 2. CT of the head revealed no evidence of acute intracranial disease. 3. Brain MRA: Essentially normal MRA of the brain. 4. Brain MRI: No evidence of acute intracranial pathology. 5. Echocardiogram revealed an ejection fraction of 65% with grade 1 diastolic dysfunction. No pericardial effusion or obvious intracardiac mass or thrombus seen. 6. Myocardial perfusion scan revealed no evidence of acute extracardiac uptake. There is a mild- intensity, small-sized defect involved involving the inferior apical, mid inferior, and basal inferior segments. It appears to improve significantly from rest to stress imaging. There is no evidence of ischemia. It could be suggestive of soft tissue attenuation. 7. No ischemic-related EKG changes or significant arrhythmias. 8. CT of the chest revealed no evidence of acute disease next. CONSULTANTS: Dr. Ron Thomas. HOSPITAL COURSE: Mr. Nolasco presented to the emergency room with a brief loss of consciousness. He did describe some left-sided chest pain just prior to the event, along with headaches and dizziness. A brain MRA, MRI and CT of the head were all essentially normal with no acute processes. EEG was normal. He was evaluated by Cardiology. A stress test was negative for ischemia. He did rule out by enzymes. He had no recurring syncopal episodes. He had no recurring chest pain while in the hospital. DISCHARGE VITAL SIGNS: Blood pressure is 116/68 with a heart rate of 56, respirations of 18, temperature of 97.9 oral with room air saturation 96%. DISCHARGE PHYSICAL EXAMINATION: Cardiovascular: Regular rate and rhythm. S1 and S2 appreciated. Pulmonary: Breath sounds are clear with no increased work of breathing noted. Gastrointestinal: Abdomen is soft, nontender, nondistended with bowel sounds in all 4 quadrants. : No CVA or suprapubic tenderness. Neurologic: He is alert and oriented x3. DISCHARGE MEDICATIONS: Protonix 40 mg p.o. b.i.d., aspirin 81 mg p.o. daily, Coreg 3.125 p.o. every 12 hours, Carafate 1 g p.o. every 6 hours, Pepcid 20 mg p.o. daily, Flomax 0.4 p.o. daily, Flexeril 10 mg p.o. t.i.d., Bentyl 20 mg p.o. b.i.d. FOLLOWUP: 1. Dr. Cosmo Sheikh. He needs to call Tuesday to schedule an appointment to be seen within a week. 2. Dr. Mitul Amor on September 27 at 8:40 a.m. 3. He has been instructed to call to be seen sooner or return to the emergency room for any syncope, dizziness, chest pain, palpitations, shortness of breath, temperature greater than 101, any nausea, vomiting, diarrhea, constipation, black or bloody vomitus or stools, hematuria, dysuria, frequency or urgency. TIME SPENT: This was a greater than 30-minute discharge. Dictated by SANTIAGO Almendarez for Andrade Allen MD Addendum: Patient seen and examined by myself. Agree with SANTIAGO note. It reflects my assessment and plan. Patient is being discharged in stable condition. Will be seen by GI and PCP as above. cc: SANTIAGO Almendarez MD [facility]
--- NOTE | 2019-09-25 07:02 | Carotid Study ---
DATE: 09/20/2019 REQUESTING PHYSICIAN: Dr. Rachel. READING PHYSICIAN: Dr. Stoner. RATING OFFICER: Nils. INDICATION: Syncope. FINDINGS: There were no significant plaques found in the carotid system nor turbulent flow or elevated velocities. There was antegrade vertebral flow bilaterally. Percent stenosis is 0 to 39 percent bilaterally. INTERPRETATION: Normal carotid imaging study. cc: MD Deric Jalloh MD
== END 2019-09-21 13:20 | disposition home or self-care (01) ==
LOC: SUPCPDRO → ED 15:29 → 1N 23:31 → INTOOBSV 23:31 → SUATTDRO 23:31
PROVIDERS: ATTEND Internal Medicine

== ENCOUNTER 2019-10-23 04:24 | Inpatient (IN) ==
[2019-10-23] MEDS ORDERED: PEPCID IV ONE (04:37)
[2019-10-23] MEDS ORDERED: BENTYL IM ONE (04:37)
[2019-10-23] MEDS ORDERED: SODIUM CHLORIDE 0.9% INJ ONE (04:37)
[2019-10-23] MEDS ORDERED: ZOFRAN IV ONE ×2 (04:37→06:55)
[2019-10-23] MEDS ORDERED: NS 1,000 ML IV ONE (04:37)
--- NOTE | 2019-10-23 04:45 | EKG Report ---
Test Performed on : 10/23/2019 04:30:21 AM Test Reason : near syncope Blood Pressure : / mmHG Vent. Rate : 073 BPM Atrial Rate : 073 BPM P-R Int : 186 ms QRS Dur : 110 ms QT Int : 400 ms P-R-T Axes : 035 -43 036 degrees QTc Int : 440 ms Normal sinus rhythm. Left axis deviation Abnormal ECG When compared with ECG of 20-SEP-2019 08:23, No significant change was found Unconfirmed Result
--- NOTE | 2019-10-23 05:04 | PROVIDER DOCUMENTATION ---
HPI-Abdominal Pain/GI Problem - General Chief Complaint: Syncope Stated Complaint: SYNCOPE Time Seen by Provider: 10/23/19 04:33 Source: patient Allergies/Adverse Reactions: Patient Allergies Allergy/AdvReac Type Severity Reaction Status Date / Time No Known Allergies Allergy Verified 09/19/19 20:07 Home Medications: Home Medication List Medication Instructions Recorded Confirmed Last Taken Type Cyclobenzaprine [Flexeril] 10 mg PO TID 11/08/12 10/23/19 08/16/14 22:00 History Calcium Carbonate/Vitamin D3 1 each PO DAILY 04/18/13 10/23/19 08/17/14 06:30 History [Calcium 1,000 + D3 Caplet] Multivit-Min/FA/Lycopene/Lut 1 each PO DAILY 04/18/13 10/23/19 08/17/14 06:30 History [Centrum Silver Tablet] [place]-3 Fatty Acids [Fish Oil 1,750 mg PO DAILY 04/18/13 10/23/19 08/17/14 06:30 History Concentrate] Tamsulosin [Flomax] 0.4 mg PO DAILY 04/18/13 10/23/19 08/16/14 22:00 History Aspirin 81 mg PO DAILY chewtab 09/21/19 10/23/19 Unknown Rx Pantoprazole [Protonix] 40 mg PO BID #60 tab 09/21/19 10/23/19 Unknown Rx Hydrocodone/Acetaminophen [Forest 1 - 2 ea PO TID PRN 10/23/19 10/23/19 Unknown History 10-325 Tablet] Tizanidine [Zanaflex] 4 mg PO QHS PRN 10/23/19 10/23/19 Unknown History Trazodone [Desyrel] 100 mg PO QHS 10/23/19 10/23/19 Unknown History - History of Present Illness-ABD Nature of Presenting Problems: Patient states that he's been having a lot "reflux symptoms," including heart burn, belching, gas over the last few days, and this morning was trying to drive to [employer], when he just really "felt bad." States he was light headed, sweaty, and then fainted coming into the doors of the ER. No injury as he was able to collapse into a wheel chair without harm. has a GI appointment with Dr. Sheikh this morning around 1100. A review of medical records shows two prior visits last year for similar symptoms, one in 04/27 attributed to heat exhaustion, then again 09/20/19. During that admission, he had cardiology consultation with Dr. Thomas including stress nuclear medicine scan and echocardiogram. He also had neuro consultation with Dr. Bear including EEG, MRI/MRA Brain. Work up both times were normal except hiatal hernia. He was referred to Dr. Sheikh on the second visit, which is whom he is supposed to see later this morning. Abdominal Pain Onset Location: reports: generalized abdomen Pain Radiation: reports: epigastric Quality of Pain: reports: burning, indigestion Severity in ED: reports: moderate Onset/Duration: reports: 2 days ago Timing: reports: still present, constant, getting worse Activities at Onset: reports: light activity Exposure to sick contacts?: No Modifying Factors: improves with: other (belching). worse with: lying down Associated Symptoms: reports: chest pain, diaphoresis, dizziness, malaise, nausea, weakness Last BM: 24 hours ago Dark Stools Present?: reports: none noticed Rectal Bleeding: reports: none Rectal Pain: reports: none Emesis Description: reports: none Bruising or Bleeding Gums?: No Similar Symptoms Previously?: Yes (for about a year) Recently seen or treated by another doctor?: Yes (admitted last month for same) Review of Systems - Adult - REVIEW OF SYSTEMS - ADULT Constitutional: reports: no symptoms reported Eyes: reports: no symptoms reported Ears, Nose, Mouth & Throat: reports: no symptoms reported Cardiovascular: reports: see HPI, chest pain, syncope. denies: edema, heart murmur, irregular heart rate, orthopnea, palpitations, poor circulation, PND Respiratory: reports: no symptoms reported Gastrointestinal: reports: see HPI, abdominal pain, frequent heartburn, nausea, poor appetite. denies: hematemesis, constipation, diarrhea, difficulty swallowing, rectal bleeding, vomiting Genitourinary: reports: no symptoms reported Musculoskeletal: reports: no symptoms reported Integumentary: reports: no symptoms reported Neurological: reports: no symptoms reported Psychiatric: reports: no symptoms reported Endocrine: reports: no symptoms reported Hematologic/Lymphatic: reports: no symptoms reported Allergic/Immunologic: reports: no symptoms reported All Other Systems: Reviewed and Negative Past History - Adult - PAST MEDICAL HISTORY-ADULT Review of Records: reports: Old Records Reviewed, Nursing Assessment Review, Medications Reviewed, Social history reviewed & non-contributory. Major Childhood Illnesses: reports: denies history Cardiovascular: reports: denies history, HTN Respiratory: reports: denies history Gastrointestinal: reports: denies history Obstetrical/Gynecological: reports: denies history Genitourinary: reports: denies history Musculoskeletal: reports: denies history Neurological: reports: headaches/migraines Endocrine/Immune: reports: denies history Other Conditions: reports: denies history - PRIOR SURGERIES/PROCEDURES Surgical/Procedure History: reports: reviewed, not pertinent - IMMUNIZATION STATUS Childhood Immunizations: UTD - FAMILY HISTORY Family History: CAD over 55 yo - SOCIAL HISTORY Smoking: non-smoker Substance Use: none/never Alcohol Use Frequency: never Living Situation: family Physical Exam-General - PHYSICAL EXAM-ADULT Initial Vital Signs Reviewed: Yes (INitially hypertensive, otherwisd stable) - CONSTITUTIONAL General Appearance: alert, mild distress, obese, other (seems a little confused, slow to respond, but responds appropriately after re-direction) - EYES Eyes: PERRL/EOMI, pale conjunctivae - HEAD, EARS, NOSE, MOUTH & THROAT HENMT: normocephalic/atraumatic, moist mucous membranes, normal ENT inspection, pharynx normal - NECK Neck: non-tender, full range of motion, supple, normal inspection - RESPIRATORY Respiratory: chest non-tender, lungs clear, normal breath sounds, no pleuratic chest pain, no respiratory distress, no accessory muscle use - CARDIOVASCULAR Cardiovascular: normal peripheral pulses, regular rate, rhythm, no edema, no gal lop, no JVD, no murmur - GASTROINTESTINAL (ABDOMEN) Abdominal Exam: soft, no organomegaly, no pulsatile mass, abnormal bowel sounds (hyperactive), distended, tenderness (mild generalized), other (belches when abdomen is pressed). negative: guarding, hernia, mass, hepatomegaly, McBurney's point tenderness, Chester's sign, obturator sign, prominent aortic pulsations, psoas sign, Rovsing's sign - LYMPHATIC Lymphatic: no adenopathy - MUSCULOSKELETAL Back Exam: normal inspection. negative: decreased range of motion Extremity: normal range of motion, non-tender, normal gait, normal inspection, no pedal edema, no calf tenderness, normal capillary refill - SKIN Integumentary: normal color, normal turgor, diaphoresis (slight). 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 II-XII nml as tested, grossly normal, no motor/sensory deficits - PSYCHIATRIC Psych/Mental Status: normal mood/affect, normal thought content, oriented x 3, other (slow, somewhat confused, but oriented x 3 and easily re-directed) Progress - PLAN OF CARE/RESULTS Progress/Plan/Lab Results: Vital Signs - 8 hr 10/23/19 04:25 Temperature 98.1 F Pulse Rate 98 H Respiratory Rate 19 Blood Pressure 163/111 O2 Sat by Pulse Oximetry 97 Laboratory Results - last 24 hr 10/23/19 04:35 POC Glucose 94 Orders Category Date Time Status Finger Stick Blood Sugar (ED) DIRECTED Care 10/23/19 04:34 Active Nursing- Obtain EKG once Care 10/23/19 04:34 Active Saline Loc NOW Care 10/23/19 04:34 Active NPO Diet 10/23/19 04:34 Active CHEST-PORTABLE [RAD] Stat Exams 10/23/19 04:[address] ABD/PELVIS W/IV CONT ONLY [CT] Stat Exams 10/23/19 04:[address] HEAD W/O CONTRAST [CT] Stat Exams 10/23/19 04:37 Ordered ABG [RESP] Routine Lab 10/23/19 04:34 Ordered ALCOHOL BLOOD Stat Lab 10/23/19 04:34 Uncollected CBC WITH ELECTRONIC DIFF [HEME] Stat Lab 10/23/19 04:34 Uncollected CK PROFILE [SP CHEM] Stat Lab 10/23/19 04:34 Uncollected COMPREHENSIVE METABOLIC PANEL [CHEM] Stat Lab 10/23/19 04:34 Uncollected INFLUENZA SCREEN A/B Stat Lab 10/23/19 04:35 Uncollected LACTATE, PLASMA [CHEM] Stat Lab 10/23/19 04:35 Uncollected MAGNESIUM [CHEM] Stat Lab 10/23/19 04:35 Uncollected PROTIME WITH INR [COAG] Stat Lab 10/23/19 04:35 Uncollected TROPONIN T HIGH SENSITIVITY Stat Lab 10/23/19 04:35 Uncollected TSH Stat Lab 10/23/19 04:35 Ordered URINALYSIS W/POSS RFLX CULT [URINALYSIS] Stat Lab 10/23/19 04:35 Uncollected URINE DRUG SCREEN Stat Lab 10/23/19 04:35 Uncollected 0.9% Sodium Chloride Inj [Ns] 1,000 ml Med 10/23/19 04:37 Active IV 999 mls/hr Dicyclomine [Bentyl] Med 10/23/19 04:37 Discontinued 20 mg IM NOW ONE Famotidine [Pepcid] Med 10/23/19 04:37 Discontinued 20 mg IV NOW ONE Ondansetron [Zofran] Med 10/23/19 04:37 Discontinued 4 mg IV NOW ONE Sodium Chloride 0.9% Med 10/23/19 04:37 Discontinued 5 - 10 ml INJ NOW ONE EKG [EKG] Stat Ther 10/23/19 04:34 Draft Result Diagrams: 10/23/19 05:20 10/23/19 05:20 - REASSESSMENT Reassessment #1 Time Reassessed: 05:27 Status: improving (Given IVF, bentyl, zofran and protonix. Old chart reviewed. Pt has odd affect, seems to desire admission, though he has GI appointment at 1100, which he has waited to get for 1 month.) Reassessment #2 Time Reassessed: 06:55 Status: worsening (Began vomiting - NGT ordered as was morphine/zofran) - EKG 1 Time of EKG reading by physician:: 04:32 EKG Read and Signed by:: Alireza Burk EKG Interpretation (*Must complete 3 of following elements*): Abnormal Rate: 73 Rhythm: NSR Myrtle: left QRS: other (early transition) UT Interval: normal ST Wave: normal - CT/MRI 1 CT Study: Head Impression: Normal, See EMR Report ( EXAM: CT HEAD W/O CONTRAST HISTORY: syncope, confusion TECHNIQUE: CT head without intravenous contrast COMPARISON: None. FINDINGS: No parenchymal hemorrhage. No epidural or subdural hematoma. No subarachnoid hemorrhage. No mass identified on this noncontrasted exam. No hydrocephalus. No sinus opacification. IMPRESSION: No hemorrhage. Negative brain CT without contrast. This exam was performed using automated exposure control, adjustment of mA or kV according to patient size, and/or use of iterative reconstruction technique. Electronically signed by Dre Ca 10/23/2019 6:01 AM 10/23/19 0601 Interpreting Physician: Dre Ca MD Dictated Date/Time: 10/23/19 06 cc: Alireza Burk MD; None,PCP) 2 CT Study: Abdomen Impression: Abnormal, See EMR Report ( Signed EXAM: CT ABD/PELVIS W/IV CONT ONLY HISTORY: abdominal pain TECHNIQUE: CT abdomen and pelvis with intravenous contrast, but without oral contrast COMPARISON: 05/27/2012 FINDINGS: There is mild fatty infiltration of the liver. Normal gallbladder, spleen, pancreas, and adrenal glands. There is a 4 mm nonobstructing right renal stone. No hydronephrosis. Normal aorta. There are multiple air and fluid distended small bowel loops in the mid abdomen. There are surgical sutures in the proximal colon. There are scattered colonic diverticula. The urinary bladder is distended and appears normal. Normal prostate. There are postsurgical changes and degenerative changes in the lumbar spine. IMPRESSION: 1.Small bowel obstruction 2.Nonobstructing right renal stone 3.There is mild fatty infiltration of the liver 4.Colonic diverticulosis This exam was performed usi ng automated exposure control, adjustment of mA or kV according to patient size, and/or use of iterative reconstruction technique. Electronically signed by Dre Ca 10/23/2019 6:09 AM 10/23/19 0609 Interpreting Physician: Dre Ca MD Dictated Date/Time: 10/23/19 0606 cc: Alireza Burk MD; None,PCP) - CONSULTS/PCP/HOSPITALIST Notification #1 *Consult/PCP/Hospitalist*: Wilson paged at [phone] - hospitalist Time Discussed: 06:50 Consult Disposition: other (Call the new hospitalist after 7pm.) #2 Consult: surgeon Time Discussed: 08:24 Consult Disposition: Will see in ED, Admit #3 Consult: Surekha for Hospitalist Time Discussed: 08:25 Consult Disposition: Will see in ED, Admit - CHANGE OF SHIFT REPORT (ED Provider) 1 Report Given and Care Transferred to:: Dr. Molina Time of Transfer: 07:00 Items Pending: Physician Consult/Arrival (Hospitalist) Departure - Departure Date of Disposition Decision: 10/23/19 Time of Disposition Decision: 06:41 DIAGNOSIS: Syncope and collapse, Intermittent small bowel obstruction Hypertension Qualifiers: Hypertension type: essential hypertension Qualified Code(s): I10 - Essential (primary) hypertension Disposition: ADMITTED INPATIENT 09 Certified Medical Emergency: Emergent Condition: Fair Referrals and Follow-Ups: None,PCP [NON-STAFF PROVIDER] - - Critical Care Note This patient required my direct & personal management of CC.: Yes Total Time (mins): 40 Critical Care Statement: This patient required my direct personal management to treat or rule out processes, the absence of which, could potentiallly result in sudden, clinically significant life or limb threatening deterioration. Attestation - Physician/ JOSIAS Attestation Patient care was provided by Advanced Practice Provider:: No The physician spent face to face time with patient:: Yes Advanced Practice Provider documentation review:: Supervising physician onsite and consulted in the evaluation and care of this patient. The physician did have a face to face encounter with the patient.
[2019-10-23 05:10] LABS: ALLEN TEST YES; BE 0.9 mmoll (-3.0-3.0); BLOOD TYPE ARTERIAL; HCO3-(ACT) 25.5 mmoll (20.0-26.0); METHB 1.1 % (0.0-1.5); O2(CT) 22.8 mL/dL (15.0-23.0); O2HB 93.3 % (95.0-99.0); PCO2(98.6) 35 mmHg (35-45); PO2(98.6) 66 mmHg (60-100); SAMPLE BLOOD; SAO2 96.1 % (95.0-100.0); THB 17.4 g/dL (11.5-17.4); pH(98.6) 7.45 (7.35-7.45)
[2019-10-23 05:11] LABS: MODALITY VENTILATOR
[2019-10-23 05:41] LABS: BASO# 0.03 X1000 (0.0-0.2); BASO% 0.4 % (0.0-0.8); EOS# 0.13 X1000 (0.0-0.7); EOS% 1.9 % (0.0-10.0); HEMATOCRIT 47.1 % (42.0-52.0); HEMOGLOBIN 16.3 g/dL (14.0-18.0); IMM GRAN# 0.03 X1000 (0.0-0.04); IMM GRAN% 0.4 % (0.0-0.5); LYMPH# 1.43 X1000 (1.2-3.4); LYMPH% 20.5 % (20.5-51.1); MCHC 34.6 g/dL (33-37); MCV 92.5 FL (81-99); MONO% 7.2 % (1.7-9.3); NEUT# 4.87 X1000 (1.4-6.5); NEUT% 69.6 % (42.2-75.2); PLT 100 X1000 (130-400); RBC 5.09 XMIL (4.7-6.1); RDW 13.4 % (11.5-14.5); WBC 6.99 X1000 (4.8-10.8)
[2019-10-23 05:48] LABS: INR 1.08; PROTIME 14.1 Seconds (11.0-16.0)
--- NOTE | 2019-10-23 06:03 | Diag Imaging Result Doc PS360 ---
EXAM: CT HEAD W/O CONTRAST HISTORY: syncope, confusion TECHNIQUE: CT head without intravenous contrast COMPARISON: None. FINDINGS: No parenchymal hemorrhage. No epidural or subdural hematoma. No subarachnoid hemorrhage. No mass identified on this noncontrasted exam. No hydrocephalus. No sinus opacification. IMPRESSION: No hemorrhage. Negative brain CT without contrast. This exam was performed using automated exposure control, adjustment of mA or kV according to patient size, and/or use of iterative reconstruction technique. Electronically signed by Dre Ca 10/23/2019 6:01 AM
[2019-10-23 06:08] LABS: AGAP 14; ALB/GLOB RATIO 1.5; ALBUMIN 4.3 g/dL (3.5-5.0); ALKALINE PHOSPHATASE 62 U/L (32-122); BUN 11 mg/dL (8-22); CALCIUM 10.2 mg/dL (8.8-10.2); CHLORIDE 103 mmol/L (98-107); CK PROFILE 110 U/L (24-204); COSMO 281; CREATININE 0.9 mg/dL (0.7-1.2); ESTIMATED GFR > 60; GLUCOSE 99 mg/dL (70-104); GOT 25 U/L (10-34); GPT 23 U/L (10-44); MAGNESIUM 2.1 mg/dL (1.5-2.7); POTASSIUM 4.5 mmol/L (3.5-5.1); SODIUM 141 mmol/L (136-145); TCO2 24 mmol/L (25-35); TOTAL BILIRUBIN 0.71 mg/dL (0.20-1.00); TOTAL PROTEIN 7.2 g/dL (6.3-8.3)
--- NOTE | 2019-10-23 06:11 | Diag Imaging Result Doc PS360 ---
EXAM: CT ABD/PELVIS W/IV CONT ONLY HISTORY: abdominal pain TECHNIQUE: CT abdomen and pelvis with intravenous contrast, but without oral contrast COMPARISON: 05/27/2012 FINDINGS: There is mild fatty infiltration of the liver. Normal gallbladder, spleen, pancreas, and adrenal glands. There is a 4 mm nonobstructing right renal stone. No hydronephrosis. Normal aorta. There are multiple air and fluid distended small bowel loops in the mid abdomen. There are surgical sutures in the proximal colon. There are scattered colonic diverticula. The urinary bladder is distended and appears normal. Normal prostate. There are postsurgical changes and degenerative changes in the lumbar spine. IMPRESSION: 1.Small bowel obstruction 2.Nonobstructing right renal stone 3.There is mild fatty infiltration of the liver 4.Colonic diverticulosis This exam was performed using automated exposure control, adjustment of mA or kV according to patient size, and/or use of iterative reconstruction technique. Electronically signed by Dre Ca 10/23/2019 6:09 AM
--- NOTE | 2019-10-23 06:30 | Diag Imaging Result Doc PS360 ---
CHEST-PORTABLE - 10/23/2019 INDICATION: syncope COMPARISON: 09/19/2019 FINDINGS: The lungs are normally expanded and clear. Heart size and mediastinal contours are normal. No pneumothorax or pleural effusion. IMPRESSION: Negative exam. Electronically signed by Mario Castro 10/23/2019 6:27 AM
[2019-10-23] MEDS ORDERED: MORPHINE IV ONE (06:55)
[2019-10-23 07:00] LABS: URINE SOURCE CLEAN CATCH
[2019-10-23 07:22] LABS: UR AMPHETAMINES QUAL NONE DETECTED (NONE DETECT); UR BARBITUATES QUAL NONE DETECTED (NONE DETECT); UR BENZODIAZEPIN QUAL NONE DETECTED (NONE DETECT); UR CANNABINOIDS QUAL NONE DETECTED (NONE DETECT); UR COCAINE QUAL NONE DETECTED (NONE DETECT); UR METHADONE QUAL NONE DETECTED (NONE DETECT); UR OPIATES QUAL NONE DETECTED (NONE DETECT); UR OXYCODONE QUAL NONE DETECTED (NONE DETECT); UR PCP QUAL NONE DETECTED (NONE DETECT)
[2019-10-23 07:26] LABS: BILIRUBIN URINE NEGATIVE (NEGATIVE); BLOOD URINE NEGATIVE (NEGATIVE); COLOR YELLOW; GLUCOSE URINE NEGATIVE (NEGATIVE); KETONE URINE NEGATIVE (NEGATIVE); LEUKOCYTES URINE NEGATIVE (NEGATIVE); NITRITE URINE NEGATIVE (NEGATIVE); PROTEIN URINE NEGATIVE (NEGATIVE); SP GRAVITY URINE 1.037; TURBIDITY URINE CLEAR (CLEAR); UROBILINOGEN URINE NORMAL (NORMAL)
[2019-10-23 07:28] LABS: UR EPITHELIAL CELLS <10 /HPF (<10); URINE BACTERIA NEGATIVE /HPF; URINE RBC <10 /HPF (<10); URINE WBC <10 /HPF (<10)
[2019-10-23] MEDS ORDERED: ATIVAN IV ONE (10:37)
[2019-10-23] MEDS ORDERED: HURRICAINE SPRAY TOP ONE (10:38)
--- NOTE | 2019-10-23 11:43 | HISTORY AND PHYSICAL ---
PRIMARY CARE PHYSICIAN: Dr. Amor. CHIEF COMPLAINT: Abdominal pain, heartburn, belching and gas over the last several days that has progressively worsened. States he also felt lightheaded, sweaty, and when he arrived to the ER, he had a syncopal episode. HISTORY OF PRESENTING ILLNESS: This is a 64-year-old male who presents to [facility] ER with complaints of abdominal pain and heartburn, belching and gas over the last several days that had progressively worsened. States he had felt lightheaded, sweaty. When he arrived to the emergency room, he had a syncopal episode but no injury as he was able to collapse into a wheelchair without harm. He was supposed to have a GI appointment with Dr. Sheikh this morning around 11 a.m. His workup showed a CT of the abdomen and pelvis with a small-bowel obstruction. Surgery saw the patient in the emergency room and attempted to place an NG tube, but the patient was not cooperative with it, they made multiple attempts but he states he just cannot tolerate the NG tube and would not allow them to try again, but patient states "something's got to be done, I feel so bad." Explained the need for the NG tube and that once it is placed, he would start feeling better as his stomach would be decompressed. He verbalized understanding, but at this time is still not allowing us to place the NG tube. He will be admitted for further evaluation and treatment. PAST MEDICAL HISTORY: Hypertension and migraines. PAST SURGICAL HISTORY: A total knee replacement. FAMILY HISTORY: Reviewed and noncontributory. SOCIAL HISTORY: Currently lives with family. Denies any tobacco, alcohol or illicit drug use. ALLERGIES: He has no known drug allergies. HOME MEDICATIONS: All home medications will be held at this time as he is n.p.o. LABORATORY DATA: Showed a white blood cell count of 6.99, hemoglobin 16.3, hematocrit 47.1, platelets 100,000. PT and INR of 14.1 and 1.08. ABG with a pH of 7.45, pCO2 35, PO2 66, bicarb 25.5. Sodium 141, potassium 4.5, chloride 103, CO2 24, BUN of 11, creatinine 0.9, glucose 99, magnesium of 2.1. Plasma lactate of 1.9. TSH of 3.32. Urinalysis was negative. Urine drug screen showed none detected. Serum alcohol level showed none detected. EKG showed normal sinus rhythm at 73. IMAGING: Chest x-ray showed a negative exam. CT of the abdomen and pelvis showed a small-bowel obstruction, a nonobstructing right renal stone and fatty infiltration that is mild of the liver. Colonic diverticulosis. CT of the head showed no hemorrhage and a negative brain CT without contrast. REVIEW OF SYSTEMS: He denied any fever, chills, blurred vision. He did have dizziness, lightheadedness, syncopal episode on arrival, abdominal pain, nausea, vomiting. Denied any constipation or diarrhea, burning or hurting with urination. PHYSICAL EXAMINATION: VITAL SIGNS: On arrival, he had a temperature of 98.1 degrees, pulse 98, respirations 19, blood pressure was 163/111, saturating 97% on room air. Currently, blood pressure is down to 149/87. GENERAL: This is a 64-year-old male sitting on the end of the bed. Answers questions appropriately. HEENT: Normocephalic, atraumatic. Normal ENT inspection. Oropharynx and nares are clear. EYES: Pupils are equal, round, reactive to light and accommodation. Extraocular movements are intact. NECK: Normal inspection, normal range of motion. LUNGS: Clear to auscultation bilaterally with equal lung expansion and chest wall movement. HEART: Regular rate and rhythm. No murmurs, rubs, or gallops. ABDOMEN: Was firm, distended. Bowel sounds are hyperactive x4 quadrants. MUSCULOSKELETAL: He has 5/5 strength x4 extremities. NEUROLOGICAL: The cranial nerves 2 through 12 are grossly intact. ASSESSMENT: 1. Abdominal pain. 2. Small-bowel obstruction. 3. Syncope. 4. Hypertension. PLAN: He will be admitted to the surgical unit, held n.p.o. We will continue to attempt to place an NG tube to low intermittent suction. Give him normal saline at 125 mL an hour, morphine 4 mg IV q.4 hours p.r.n., Protonix 40 mg IV every 24 and received first dose in the emergency room. SCDs for DVT prophylaxis. Consult Surgery and recheck a CBC, BMP in the a.m. Further orders after seen by attending and [facility] consultant. Dictated by SANTIAGO Pantoja for Andrade Allen MD Addendum: Patient seen and examined by myself. Agree with SANTIAGO note. It reflects my assessment and plan. Patient is being admitted to hospital for SBO. Will place an NG tube and will do serial abdominal X rays. General Surgery will be consulted. cc: SANTIAGO Pantoja MD Jay Pohl, MD MTDD
--- NOTE | 2019-10-23 11:58 | Diag Imaging Result Doc PS360 ---
CHEST/ABD TUBE PLACEMENT - 10/23/2019 11:53 AM INDICATION: ng tube placement COMPARISON: 4:53 AM FINDINGS: There is a nasogastric tube in good position in the stomach. IMPRESSION: Nasogastric tube in good position in the stomach. Electronically signed by Mario Castro 10/23/2019 11:56 AM
--- NOTE | 2019-10-23 13:06 | CONSULTATION ---
DATE OF CONSULTATION: 10/23/2019 SUBJECTIVE: Mr. Saman Nolasco is a 64-year-old white male who presented to our emergency department with a 2-day history of not feeling well with increased symptoms of reflux, abdominal distention, nausea and decreased appetite. He has been evaluated in the emergency department which included a CT scan of his abdomen and pelvis which suggested a small bowel obstruction and we were asked to evaluate him. HOME MEDICATIONS: Aspirin 81 mg p.o. daily, calcium, Flexeril, [place] 10, multivitamin, omega-3, Protonix, Flomax, Zanaflex and Desyrel. ALLERGIES: No known drug allergies. SOCIAL HISTORY: Does not smoke. There was no family at the bedside in the emergency department. PAST MEDICAL HISTORY: He has had a laparoscopic abdominal procedure possibly with a colon procedure. He has no large scars on his abdomen. OBJECTIVE: General: Mr. Nolasco is an overweight white male. He is in no acute distress. Hemodynamically satisfactory. HEENT: No jaundice. No oral lesions. No cervical or supraclavicular lymphadenopathy. Heart: Regular rate. Lungs: Clear to auscultation and percussion bilaterally. Abdomen: Was distended but not tightly. It did not appear to be tender on palpation. There was no evidence of abdominal hernia. No costovertebral tenderness. Rectal Exam: Was not performed. Extremities: He does have palpable femoral pulses. No significant peripheral edema. Neurological: He no focal deficit. IMAGING: I reviewed the CT scan with Dr. Cruz our radiologist. It suggested a small bowel obstruction maybe partial. He does have air in his colon and stool in his colon. ASSESSMENT/PLAN: I tried to place an NG tube in the emergency department but he kept pulling it out and the ER nurse will try. He was going to be admitted by the hospitalist and I will follow along with you. I agree with NPO, NG tube and IV fluids at this time. cc: Jessica Dillon MD
[2019-10-23] MEDS: NS 1,000 ML IV SCH ×2 (13:16→16:54)
[2019-10-23] MEDS: PROTONIX IV SCH (13:19)
[2019-10-23] MEDS: SODIUM CHLORIDE 0.9% INJ SCH (13:20)
[2019-10-23] MEDS: MORPHINE IV PRN (16:55)
[2019-10-23] MEDS: ATIVAN IV SCH (20:18)
[2019-10-24] MEDS: NS 1,000 ML IV SCH ×3 (01:03→17:49)
[2019-10-24] MEDS: PROTONIX IV SCH ×2 (05:43→06:59)
[2019-10-24] MEDS: SODIUM CHLORIDE 0.9% INJ SCH (05:43)
[2019-10-24] MEDS: MORPHINE IV PRN ×3 (05:48→17:46)
[2019-10-24 07:39] LABS: AGAP 10; BASO# 0.01 X1000 (0.0-0.2); BASO% 0.1 % (0.0-0.8); BUN 11 mg/dL (8-22); CALCIUM 8.8 mg/dL (8.8-10.2); CHLORIDE 106 mmol/L (98-107); COSMO 281; EOS# 0.09 X1000 (0.0-0.7); EOS% 1.3 % (0.0-10.0); ESTIMATED GFR > 60; GLUCOSE 99 mg/dL (70-104); HEMATOCRIT 47.2 % (42.0-52.0); HEMOGLOBIN 15.9 g/dL (14.0-18.0); IMM GRAN# 0.02 X1000 (0.0-0.04); IMM GRAN% 0.3 % (0.0-0.5); LYMPH# 1.72 X1000 (1.2-3.4); LYMPH% 24.8 % (20.5-51.1); MCH 31.7 PG (27-31); MCHC 33.7 g/dL (33-37); MONO# 0.47 X1000 (0.11-0.59); MONO% 6.8 % (1.7-9.3); MPV 10.6 FL (7.4-10.4); NEUT# 4.63 X1000 (1.4-6.5); NEUT% 66.7 % (42.2-75.2); PLT 145 X1000 (130-400); RBC 5.02 XMIL (4.7-6.1); RDW 13.7 % (11.5-14.5); SODIUM 141 mmol/L (136-145); TCO2 25 mmol/L (25-35); WBC 6.94 X1000 (4.8-10.8)
--- NOTE | 2019-10-24 08:11 | Diag Imaging Result Doc PS360 ---
FLAT/UPRIGHT ABD/1 VIEW CHEST - 10/24/2019 INDICATION: small bowel obstruction TECHNIQUE: COMPARISON: 10/23/2019 FINDINGS: Stable nasogastric tube in good position in the stomach. The lungs are clear and the heart size is normal. There is a nonobstructive bowel gas pattern. No free air or abnormal calcifications. IMPRESSION: No acute disease. Electronically signed by Mario Castro 10/24/2019 8:09 AM
--- NOTE | 2019-10-24 08:37 | PROGRESS NOTE ---
DATE: 10/24/2019 Mr. Nolasco is a 64-year-old white male who is admitted through our emergency department with a small bowel obstruction. He had difficulty accepting the NG tube and had a lot of vomiting in the emergency department. He now has an NG tube in place after some sedation and there has not been much output overnight. On exam, his abdomen is soft without tenderness and he is awake and cooperative. He has had no ongoing vomiting. He states that he has passed some flatus but no bowel movement. His heart rate is 79, blood pressure 141/83, O2 saturation 96%. He is afebrile. PLAN: We will plan to do a flat and upright abdominal film today. We will be careful about removing his NG tube because it was such a difficult placement. We can also consider Gastrografin through the NG tube and make sure that it gets into the colon after 6 to 8 hours. Right now, clinically he appears to be improved without ongoing small bowel obstruction. cc: Jessica Dillon MD
--- NOTE | 2019-10-24 12:29 | PROGRESS NOTE ---
DATE: 10/24/2019 SUBJECTIVE: Patient reports feeling better. He is passing gas. The x-ray from this morning showed no obstructive bowel gas pattern. OBJECTIVE: Vital Signs: Temperature 97.9, heart rate 69, respiratory rate 16, and blood pressure 141/83. O2 saturation 96% on room air. General: The is a 64-year-old male lying in bed in no acute distress. Cardiovascular: S1, S2 heard. No murmurs, gallops, or rubs. Regular rate and rhythm. Respiratory: Clear bilaterally to auscultation. No work of breathing or using accessory muscles. Abdomen: Soft. Nontender to palpation. Bowel sounds present. No organomegaly. A little bit distended abdomen. Extremities: No clubbing, cyanosis, or edema. Peripheral pulses present in both legs. Neurological: Patient alert and oriented x3. Moves all 4 extremities. LABORATORY DATA: Reviewed. ASSESSMENT AND PLAN: 1. Small bowel obstruction. The patient has an NG tube. The x-ray from today did not show any signs of obstruction. Dr. Dillon following this patient. We will follow recommendations. 2. Hypertension. Blood pressure is under control. We will continue with the same management. We will continue with IV fluids. 3. Disposition. I think at this point, we will keep NG tube for the time Dr. Dillon considers it necessary. Surgery mentioned that they are going to order a Gastrografin to be put into the NG tube to see if that gets into the colon. We will follow his recommendations. cc: Andrade Allen MD
[2019-10-24] MEDS: ZOFRAN IV PRN ×2 (12:47→21:43)
[2019-10-24] MEDS: ATIVAN IV SCH (21:43)
[2019-10-25] MEDS: MORPHINE IV PRN ×4 (04:33→22:11)
[2019-10-25] MEDS: PROTONIX IV SCH (06:24)
[2019-10-25] MEDS: SODIUM CHLORIDE 0.9% INJ SCH (06:24)
[2019-10-25] MEDS: NS 1,000 ML IV SCH ×3 (06:34→22:12)
--- NOTE | 2019-10-25 10:36 | Diag Imaging Result Doc PS360 ---
ABDOMEN FLAT/UPRIGHT - 10/25/2019 INDICATION: sbo COMPARISON: 10/24/2019 FINDINGS: There is a nasogastric tube in good position in the stomach. There is a nonobstructive bowel gas pattern. No free air or abnormal calcifications. There appear to be surgical suture lines in the right lower quadrant of the abdomen stable from prior. IMPRESSION: No acute disease. Electronically signed by Mario Castro 10/25/2019 10:33 AM
[2019-10-25] MEDS: OFIRMEV 1000 MG/ISOTONIC SOLN 1,000 MG/100 ML BOTTLE IV PRN ×2 (13:19→22:11)
--- NOTE | 2019-10-25 13:25 | PROGRESS NOTE ---
DATE: 10/25/2019 SUBJECTIVE: The patient reports not passing gas and not having any bowel movements. The x-ray from this morning showed nonobstructive bowel gas pattern. OBJECTIVE: Vital Signs: Temperature 98.3 degrees, heart rate 82, respiratory rate 19, blood pressure 166/84, O2 saturation 94% on room air. General: This is a 64-year-old, male, lying in bed in no acute distress. Cardiovascular: S1, S2 heard. No murmurs, gallops, or rubs. Regular rate and rhythm. Respiratory: Clear bilaterally to auscultation. No work of breathing or using accessory muscles. Abdomen: Soft, continues to be distended. Bowel sounds present, but hypoactive. No organomegaly noted. No signs of peritoneal irritation. Extremities: No clubbing, cyanosis, or edema. Peripheral pulses present in both legs. Neurological: The patient is alert and oriented x3. Moves all 4 extremities. LABORATORY DATA: Reviewed. ASSESSMENT AND PLAN: 1. Small-bowel obstruction. The patient continues to have a nasogastric tube, and the x-rays from yesterday and today did not show any obstructive pattern, but the patient is not having any bowel movement or having any gas passed. In that regard, considering that his nasogastric tube placement was very difficult, we prefer to contact Dr. Dillon and see if we can remove it or not. 2. Hypertension. Blood pressure is under control. Will continue with the same management. 3. Disposition. As mentioned before, we are awaiting recommendations from Dr. Dillon regarding to continue having this nasogastric tube in place or not. cc: Andrade Allen MD
--- NOTE | 2019-10-25 14:52 | PROGRESS NOTE ---
DATE: 10/25/2019 SUBJECTIVE: Mr. Nolasco is now hospital day three. He was admitted with a small bowel obstruction. Today's x-ray suggests air throughout the transverse colon. It did not appear to be an ongoing obstructive pattern. He still has an NG tube in place. It was very difficult to have the NG tube placed on his admission. He states last night that he had a lot of diffuse abdominal pain. He did not describe it as crampy but constant. He has had about 700 mL out of his NG tube recorded for 10/24/2019. I do not get the sense that he is draining a lot from his NG tube. He states that he has had no flatus or bowel movement. He remains NPO, on IV fluids. OBJECTIVE: Vital signs: His heart rate is 71, blood pressure 150/78, O2 saturation 94%. He is afebrile. Abdomen: Soft. It is not tightly distended. It did not appear to be tender. I could palpate no mass. NG tube remains in place. PLAN: I will see if our radiology department has Gastrografin. We can always give him 100 mL of undiluted Gastrografin and follow up this with a flat and upright tomorrow morning to see if it makes it into the colon. If they do not, I think clamping the NG tube and seeing how he tolerates this would be reasonable. cc: Jessica Dillon MD
[2019-10-25] MEDS: ZOFRAN IV PRN (22:11)
[2019-10-26] MEDS: MORPHINE IV PRN ×3 (01:17→13:23)
[2019-10-26] MEDS: NS 1,000 ML IV SCH ×2 (05:07→13:24)
[2019-10-26] MEDS: OFIRMEV 1000 MG/ISOTONIC SOLN 1,000 MG/100 ML BOTTLE IV PRN (05:25)
[2019-10-26 06:49] LABS: BASO# 0.02 X1000 (0.0-0.2); BASO% 0.3 % (0.0-0.8); EOS# 0.08 X1000 (0.0-0.7); EOS% 1.1 % (0.0-10.0); HEMATOCRIT 46.1 % (42.0-52.0); LYMPH# 1.45 X1000 (1.2-3.4); LYMPH% 20.5 % (20.5-51.1); MCH 32.5 PG (27-31); MCHC 34.7 g/dL (33-37); MCV 93.7 FL (81-99); MONO# 0.64 X1000 (0.11-0.59); NEUT# 4.89 X1000 (1.4-6.5); NEUT% 69.1 % (42.2-75.2); PLT 130 X1000 (130-400); RBC 4.92 XMIL (4.7-6.1); RDW 13.5 % (11.5-14.5); WBC 7.08 X1000 (4.8-10.8)
--- NOTE | 2019-10-26 07:39 | Diag Imaging Result Doc PS360 ---
EXAM: FLAT/UPRIGHT ABD/1 VIEW CHEST HISTORY: small bowel obstruction. TECHNIQUE: Four views COMPARISON: 10/25/2019 FINDINGS: The lungs are well-expanded. No cardiomegaly. No pneumonia. No free air beneath the diaphragm. There is a nasogastric tube in the stomach. No organomegaly. The bowel loops are not distended. There is stool in the colon. There has been surgery to the lower lumbar spine. IMPRESSION: No evidence of a bowel obstruction. Electronically signed by Dre Ca 10/26/2019 7:36 AM
[2019-10-26 07:45] LABS: AGAP 14; BUN 9 mg/dL (8-22); CALCIUM 9.2 mg/dL (8.8-10.2); CHLORIDE 102 mmol/L (98-107); COSMO 275; CREATININE 0.7 mg/dL (0.7-1.2); ESTIMATED GFR > 60; GLUCOSE 81 mg/dL (70-104); POTASSIUM 4.1 mmol/L (3.5-5.1); SODIUM 139 mmol/L (136-145); TCO2 23 mmol/L (25-35)
[2019-10-26] MEDS: ZOFRAN IV PRN ×3 (07:57→19:06)
[2019-10-26] MEDS: PROTONIX IV SCH (09:01)
--- NOTE | 2019-10-26 12:49 | PROGRESS NOTE ---
DATE: 10/26/2019 SUBJECTIVE: Patient's NG tube has been clamped. He reports that he has a more distended abdomen. His abdominal x-ray from this morning does not show any signs of bowel obstruction. The patient is not having any bowel movement or passing any gases since admission. OBJECTIVE: Vital Signs: Temperature 98.1 degrees, heart rate 55, respiratory rate 18, blood pressure 120/50. O2 saturation 100% on room air. General: This is a 64-year-old male lying in bed in no acute distress. HEENT: NG tube in place, and clamped. Cardiovascular: S1, S2 heard. No murmurs, gallops, or rubs. Regular rate and rhythm. Respiratory: Clear bilaterally to auscultation. No work of breathing. He is not using any accessory muscles, Abdomen: Still distended. Bowel sounds present but distant. No organomegaly noted. No signs of peritoneal irritation. Extremities: No clubbing, cyanosis, or edema. Peripheral pulses present in both legs. Neurological: Patient alert and oriented x3. Moves all 4 extremities. LABORATORY DATA: Reviewed. ASSESSMENT AND PLAN: 1. Small bowel obstruction. The patient continues to have NG tube that has been clamped at the chest today. He actually reports feeling a little bit more than just pain there. At this point, we are going to talk with Dr. Dillon to perform that x-ray from yesterday and today. Abdominal x-ray did not show any signs of small obstruction. At this point, we will keep the NG tube until Dr. Dillon decides to remove it. 2. Hypertension. Blood pressure is under good control. We will continue with the same management. 3. Disposition. At this point, following the lead from General Surgery. cc: MD JENNIFER Ryan
[2019-10-26] MEDS: D5 1/2 NS + KCL 20 MEQ 1,000 ML IV SCH (17:28)
[2019-10-26] MEDS: NORCO-10 PO PRN (19:06)
--- NOTE | 2019-10-26 19:50 | PROGRESS NOTE ---
DATE: 10/26/2019 Mr. Saman Nolasco tolerated his NG tube being clamped for the last 24 hours. Another abdominal film today suggested no dilated loops of bowel. His abdomen is soft, and it does not appear to be tender. We will remove his NG tube, begin clear liquids, advance his diet as tolerated. If he tolerates a regular diet, he will be discharged home with followup per Dr. Amor. cc: Jessica Dillon MD
[2019-10-26] MEDS: BENADRYL PO PRN (21:52)
[2019-10-26] MEDS: PROTONIX PO SCH (21:53)
[2019-10-26] MEDS: DESYREL PO SCH (21:53)
[2019-10-27] MEDS: D5 1/2 NS + KCL 20 MEQ 1,000 ML IV SCH ×3 (06:45→19:59)
[2019-10-27] MEDS: ZOFRAN IV PRN ×2 (07:00→16:50)
[2019-10-27] MEDS: FLOMAX PO SCH (09:30)
[2019-10-27] MEDS: PROTONIX PO SCH ×2 (09:31→19:59)
[2019-10-27] MEDS ORDERED: GOLYTELY PO ONE (09:47)
--- NOTE | 2019-10-27 13:46 | PROGRESS NOTE ---
DATE: 10/27/2019 SUBJECTIVE: Patient reports feeling fine. NG tube has been removed yesterday. He has been placed on clear liquids. He has not had any bowel movement. He requests something to help move his bowels. He is passing gases. OBJECTIVE: Vital Signs: Temperature 97.9 degrees, heart rate 65, respiratory rate 18, blood pressure 140/68. O2 saturation 100% on room air. General Examination: This is a 64-year-old male, lying in bed, in no acute distress. Cardiovascular: S1 and S2 heard. No murmurs, gallops, or rubs. Regular rate and rhythm. Respiratory: Clear bilaterally to auscultation. No work of breathing. Not using accessory muscles. Abdomen: Soft. Definitely less distended. Bowel sounds present but distant. No organomegaly noted. No signs of peritoneal irritation. Extremities: No clubbing, cyanosis, or edema. Peripheral pulses present in both legs. Neurological: Patient alert, oriented x3. Moves 4 extremities. LABORATORY DATA: Reviewed. ASSESSMENT AND PLAN: 1. Small bowel obstruction. I think that condition is resolved. NG tube has been removed by surgery. At this point, we will advance his diet to GI soft diet. The patient wants to have medication for constipation so we will provide some GoLYTELY today. I think if he tolerates food and is also able to move his bowels, I think he can be discharged tomorrow. 2. Hypertension. Blood pressure is under control. We will continue with the same management. 3. Disposition. At this point, as we mentioned before, we will advance his diet. We will provide GoLYTELY for constipation and we will see how he does. cc: Andrade Allen MD
--- NOTE | 2019-10-27 16:01 | GENERAL SURGERY PROGRESS NOTE ---
DATE: 10/27/2019 SUBJECTIVE: He is having flatus and some small bowel movements. He has got a little nauseated when he tried to eat this morning. OBJECTIVE: Vital signs: No fevers. Pulse 65, blood pressure 140/68. General: He is alert. Cardiovascular: Normal rate. Abdomen: Protuberant but soft. Mildly distended. Integument: Warm and dry. LABORATORY DATA: White count yesterday was normal at 7, hematocrit was 46. Electrolytes have been okay. Creatinine 0.7. ASSESSMENT AND PLAN: A 64-year-old gentleman with a bowel obstruction. This seems to be resolving slowly. He has had some nausea. I would go slow with his diet. I have encouraged the patient to go slow. He is on IV fluids. We have encouraged him to be out of bed and ambulating. cc: Crow Villalobos MD
[2019-10-27] MEDS: NORCO-10 PO PRN (19:09)
[2019-10-27] MEDS: DESYREL PO SCH (19:59)
[2019-10-27] MEDS: BENADRYL PO PRN (21:24)
[2019-10-27] MEDS: ZANAFLEX PO PRN (21:24)
[2019-10-28] MEDS: ZOFRAN IV PRN ×2 (08:53→17:10)
[2019-10-28] MEDS: NORCO-10 PO PRN ×2 (08:53→17:10)
[2019-10-28] MEDS: PROTONIX PO SCH ×2 (08:53→20:11)
[2019-10-28] MEDS: FLOMAX PO SCH (08:53)
[2019-10-28] MEDS: D5 1/2 NS + KCL 20 MEQ 1,000 ML IV SCH ×2 (10:08→20:12)
--- NOTE | 2019-10-28 10:26 | PROGRESS NOTE ---
DATE: 10/28/2019 SUBJECTIVE: The patient reports feeling fine. He had several bowel movements after we provided the GoLYTELY to him. He reports that for the last 2 to 3 days, problem with swallowing. He had esophageal dilation recently done, probably a month ago by Dr. Garcia. OBJECTIVE: Vital Signs: Temperature 97.6 degrees, heart rate 65, respiratory rate 18, blood pressure 155/95, O2 saturation 100% on room air. General: This is a 64-year-old, male, lying in bed in no acute distress. Cardiovascular: S1, S2 heard. No murmurs, gallops, or rubs. Regular rate and rhythm. Respiratory: Clear bilaterally to auscultation. No work of breathing or using accessory muscles. Abdomen: Soft, nontender to palpation. Bowel sounds present. No organomegaly. Extremities: No clubbing, cyanosis, or edema. Peripheral pulses present in both legs. Neurological: The patient is alert and oriented x3. Moves all 4 extremities. LABORATORY DATA: Reviewed. ASSESSMENT AND PLAN: 1. Small-bowel obstruction, resolved. The patient is eating some diet. He is having problems with swallowing, so Gastroenterology will be consulted. Will follow recommendations. 2. Hypertension. Blood pressure is under good control. Will continue with the same management. 3. Disposition. Will see what Gastroenterology has to say, if they prefer to workup this patient as inpatient or outpatient. Addendum: Patient has been scheduled for EGD tomorrow. cc: Andrade Allen MD [facility]
[2019-10-28] MEDS: MIRALAX PO SCH (11:09)
--- NOTE | 2019-10-28 14:40 | GASTROENTEROLOGY CONSULTATION ---
DATE: 10/28/2019 ATTENDING PHYSICIAN: Dr. Song. PRIMARY CARE DOCTOR: Dr. Mitul Amor. REASON FOR CONSULTATION: Dysphagia. HISTORY OF PRESENT ILLNESS: Mr. Nolasco is a 64-year-old male who was admitted on 10/23/2019 for symptoms of abdominal pain, belching, heartburn, and was diagnosed with a partial small bowel obstruction. He had conservative management with an NG tube, intermittent suction, IV fluids. Dr. Dillon has been following him. He has improved with the bowel obstruction now. The patient has been complaining of dysphagia with eating liquids, solids, and with medications. He had an EGD with dilation done a few months ago by Dr. Sheikh. According to him, he has now persistent symptoms and needs further workup. The patient denies any vomiting blood or passing blood in the stools. PAST MEDICAL HISTORY: Reflux disease, hypertension, migraines, partial small bowel obstruction, had a colon polyp which had to be removed laparoscopically which, according to him, possibly led to scar tissue and the small obstruction, and that was done many years ago. PAST SURGICAL HISTORY: Total knee replacement and laparoscopic surgery on the colon to remove a polyp more than 10 years ago. FAMILY HISTORY: Noncontributory. SOCIAL HISTORY: Currently lives with family. Denies alcohol, tobacco, or illicit drugs. ALLERGIES: No known drug allergies. MEDICATIONS: In the hospital include trazodone, D5 half-normal with KCl at 70 mL per hour, Benadryl 50 mg p.o. at bedtime, [place] 10 every 6 hours as needed, Zofran 4 mg IV every 4 hours, Protonix 40 mg p.o. b.i.d., MiraLAX 17 g p.o. daily, Flomax 0.4 mg p.o. daily, and Zanaflex 4 mg at bedtime. The patient was given 1 dose of GoLYTELY yesterday. DIET: He is on GI soft diet. REVIEW OF SYSTEMS: Denies any fevers, rigors, chills, chest pain, shortness of breath, dyspnea. Denies any vomiting blood or passing blood in the stools. Complains of intermittent dysphagia and heartburn. Did have bowel obstruction which is now resolved. Denies any neurologic complaints. PHYSICAL EXAMINATION: Vital Signs: Temperature 97.6 degrees, pulse rate of 65, respiratory rate 18, blood pressure 150/95, saturating 100% on room air. Body weight of 260 pounds. BMI of 34.3 kg/m2. General Appearance: Moderately-built, moderately-nourished, lying in bed, in no acute distress. HEENT: No pallor. No icterus. Pupils equal, reactive to light. Neck: Supple. Abdomen: Soft. Mild discomfort. No rebound. No guarding. Extremities: No cyanosis, clubbing. Neurologic: Alert, awake, oriented x3. LABORATORY DATA: Hemoglobin and hematocrit are 16 and 46.1, white count of 7.08, platelet count of 130,000. Sodium 139, potassium 4.1, chloride 102, bicarb of 29, BUN of 9, creatinine 0.7, glucose of 81, calcium 9.2. Flu screen done on admission was negative for both A and B. IMAGING: Last abdominal x-ray done on 10/26/2019 showed no evidence of any bowel obstruction. There is stool in the colon. There has been surgery to the lower lumbar spine. CT scan on admission, on 10/23/2019, showed small bowel obstruction, multiple air and fluid distended small bowel loops in the mid abdomen. There are surgical sutures in the proximal colon. There are scattered colonic diverticula. Urinary bladder is distended. There are postsurgical changes and degeneration in the lumbar spine. Mild fatty infiltration of the liver. Nonobstructing right renal stone, about 4 mm. IMPRESSION AND PLAN: 1. Small bowel obstruction, which is now resolved with conservative management. Likely secondary to scar tissue from prior colonic surgery. 2. History of large colon polyp removal laparoscopically more than 10 years ago. 3. Renal stone, 4 mm, nonobstructing. 4. Mild fatty infiltration of the liver. 5. Obesity, body mass index of 34.3. 6. Colonic diverticulosis on imaging. 7. Dysphagia. 8. Reflux disease. 9. Constipation. RECOMMENDATIONS: Keep the patient on Protonix twice daily. We will continue on a GI soft diet. He will continue MiraLAX once daily for bowel regimen and constipation. Giving IV fluids. He is on IV Zofran as needed. We will schedule him for an EGD tomorrow under anesthesia with possible dilation. The above plans were discussed with the patient and all questions were answered. Please call us with any further questions. The risks, benefits, indications, and alternatives to the procedure were discussed with the patient and all questions were answered. Please call with any further questions. cc: MD Mitul Reece MD Cesar Garcia-Rodriguez, MD
--- NOTE | 2019-10-28 15:04 | GENERAL SURGERY PROGRESS NOTE ---
DATE: 10/28/2019 SUBJECTIVE: He is having bowel function. His abdomen is soft. No pain. He is having what sounds like intermittent dysphagia. It is unclear if he is vomiting. He says he does not really get nauseated, just that food hangs up. No fevers. OBJECTIVE: Vital Signs: Pulse 63, blood pressure 143/90. General: He is alert. Cardiovascular: Normal rate. Abdomen: Soft, nontender, nondistended. LABORATORY DATA: No new labs this morning. ASSESSMENT AND PLAN: A 64-year-old gentleman with a resolving bowel obstruction. He has had these in the past. He has also apparently had an esophageal stricture, and I wonder if this is contributing to some of his upper gastrointestinal symptoms. It would be reasonable to get Gastroenterology to see him as clinically it seems as though his bowel obstruction has resolved. I have encouraged him to go slow with a diet, sticking mostly to liquids, and be out of bed and ambulate as much as possible. Will follow along, but no plans for surgical intervention. cc: Crow Villalobos MD
[2019-10-28] MEDS: DESYREL PO SCH (20:11)
[2019-10-28] MEDS: ZANAFLEX PO PRN (21:06)
[2019-10-28] MEDS: BENADRYL PO PRN (21:06)
[2019-10-29] MEDS ORDERED: DIPRIVAN 1% ONE (10:07)
[2019-10-29] MEDS ORDERED: FENTANYL ONE (10:07)
[2019-10-29] MEDS ORDERED: XYLOCAINE-MPF 2% ONE (10:07)
--- NOTE | 2019-10-29 10:38 | ENDOSCOPY OPERATIVE NOTE ---
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 PROCEDURE PERFORMED: EGD w/ biopsy EGD w/ dilation (evans) MEDICATIONS: Per Anesthesia TOPICAL ANESTHETIC: CONSENT: The patient understands the risks and benefits of the procedure and understands that these r isks include, but are not limited to: sedation, allergic reaction, infection, perforation and/or bleeding. Alternative means of evaluation and treatment include, among others: physical exam, x-rays, and/or surgical intervention. The patient elects to proceed with this endoscopic procedure. HISTORY AND PHYSICAL: 10/29/2019 DESCRIPTION OF PROCEDURE: During pre-op preparation period all mechanical and medical equipment was c hecked for proper function. Hand hygiene and appropriate measures for infection prevention was taken. After the risks, benefits and alternatives of the procedure were thoroughly explained, Informed consent was verified, confirmed and timeout was successfully executed by the treatment team. The patient was anesthetized with topical anesthesia and the CB58-u45 ([id number]) endoscope was introduced through the mouth and advanced to the second portion of the duoden um. The instrument was slowly withdrawn as the mucosa was fully examined. ESOPHAGUS: Z line was 45 cms. A mildly severe Schatzki ring was found at the gastroesophageal junct ion. The stricture was dilated using a 16mm (48Fr) Evans dilator. STOMACH: Multiple erosions were found in the gastric body and gastric antrum. Multiple biopsies were performed using cold forceps. Sample sent for histology. DUODENUM: The duodenal mucosa showed no abnormalities in the duodenal bulb, 1st part duodenum, and 2n d part duodenum. Dilation was performed at gastroesophageal junction. DILATOR: SIZE(S): RESISTANCE: HEME: APPEARANCE: Dilator: Evans Size(s): 48 fr Resistance: minimal Heme: none Appearance: adequate COMMENT: Retroflexion was performed in the stomach and revealed no abnormalities. ADVERSE EVENTS: There were no complications. IMPRESSIONS: 1. Z line was 45 cms 2. Schatzki ring was found at the gastroesophageal junction; The stricture was dilated using a 16mm (48Fr) Evans dilator 3. Multiple erosions were found in the gastric body and gastric antrum; multiple biopsies was perfor med 4. The duodenal mucosa showed no abnormalities in the duodenal bulb, 1st part duodenum, and 2nd part duodenum RECOMMENDATIONS: 1. Await biopsy results 2. Start Proton pump inhibitor daily - 30 minutes before a meal 3. Begin an anti-reflux lifestyle: avoid acidic foods and drinks (like coffee and soda), do not lie down three hours after eating, elevate the head of your bed 6 to 9 inches, stop smokiing and reduce weight if needed. REPEAT EXAM: Lefty Ng MD eSigned: Lefty Ng MD 10/29/2019 10:37 AM cc: CPT CODES: 1. 44898 Upper gastrointestinal endoscopy including esophagus, stomach, and either th e duodenum and/or jejunum as appropriate; with biopsy, single or multiple 2. 88372 Upper gastrointestinal endoscopy including esophagus, stomach, and either the duodenum and/ or jejunum as appropriate; with evans dilation of esophagus (less than 30 mm diameter) ICD CODES: The ICD and CPT codes recommended by this software are interpretations from the data that the [facility] staff has captured with the software. The verification of the translation of this report to the ICD and CPT co moy and modifiers is the sole responsibility of the health care institution and practicing physician where this report was generated. [employer] will not be held responsible for the validity of the ICD and CPT codes i ncluded on this report. [facility] assumes no liability for data contained or not contained herein. CPT is a registered tra demark of [employer]. PATIENT NAME: Saman Nolasco MR#: [id number]
[2019-10-29] MEDS: D5 1/2 NS + KCL 20 MEQ 1,000 ML IV SCH (11:17)
[2019-10-29] MEDS ORDERED: DULCOLAX PO ONE (12:29)
--- NOTE | 2019-10-29 12:50 | PROGRESS NOTE ---
DATE: 10/29/2019 SUBJECTIVE: Patient reports feeling fine. Reports not having any bowel movements after GoLYTELY. He requests something to help move his bowels. OBJECTIVE: Vital Signs: Temperature 97.8 degrees, heart rate 70, respiratory rate 18, blood pressure 115/76, O2 saturation 96% on room air. General: This is a 64-year-old male, lying in bed, in no acute distress. Cardiovascular: S1, S2 heard. No murmurs, gallops, or rubs. Regular rate and rhythm. Respiratory: Clear bilaterally to auscultation. No work of breathing or using accessory muscles. Abdomen: Soft, nontender to palpation. Bowel sounds present. No organomegaly. Neurological: Patient alert and oriented x3. Moves 4 extremities. LABORATORY DATA: None. ASSESSMENT AND PLAN: 1. Small bowel obstruction resolved. The patient is eating a GI soft diet. We will provide stool softeners for him. 2. History of esophageal stricture. The patient is going to have an esophageal dilation today and if everything is okay, we will monitor this patient today and tomorrow he will be good to go. 3. Disposition, as we mentioned above. cc: Andrade Allen MD
[2019-10-29] MEDS: FLOMAX PO SCH (13:30)
[2019-10-29] MEDS: CARAFATE PO SCH ×3 (13:30→20:22)
[2019-10-29] MEDS: MIRALAX PO SCH (13:31)
[2019-10-29] MEDS: PROTONIX PO SCH ×2 (13:31→20:22)
[2019-10-29] MEDS: LACTULOSE PO SCH ×2 (13:40→20:22)
[2019-10-29] MEDS: NORCO-10 PO PRN (20:22)
[2019-10-29] MEDS: DESYREL PO SCH (20:23)
[2019-10-29] MEDS: BENADRYL PO PRN (22:23)
[2019-10-29] MEDS: ZOFRAN IV PRN (22:23)
[2019-10-29] MEDS ORDERED: TYLENOL PO PRN (23:51)
[2019-10-30] MEDS: CARAFATE PO SCH ×2 (02:01→06:24)
[2019-10-30] MEDS: D5 1/2 NS + KCL 20 MEQ 1,000 ML IV SCH (02:01)
[2019-10-30 07:44] VITALS: BP 116/64
[2019-10-30] MEDS: FLOMAX PO SCH (08:00)
[2019-10-30] MEDS: PROTONIX PO SCH (08:00)
[2019-10-30] MEDS: MIRALAX PO SCH (08:00)
[2019-10-30] MEDS: LACTULOSE PO SCH (08:00)
--- NOTE | 2019-11-02 11:47 | DISCHARGE SUMMARY ---
ADMISSION DATE: 10/23/2019 DISCHARGE DATE: 10/30/2019 DISCHARGE DIAGNOSES: 1. Small bowel obstruction resolved. 2. Schatzki ring with stricture dilated. 3. Hypertension. CONSULTATIONS: 1. Dr. Dillon from General Surgery. 2. Dr. Lefty Ng from the [facility]. PROCEDURES: 1. Abdomen and pelvis CT done on admission showed small bowel obstruction. Nonobstructing right renal stone. There is mild fatty infiltration of the liver with colonic diverticulosis. 2. NG tube was placed on 10/23/2019. 3. EGD was performed by Dr. Ng which basically shows Schatzki ring was found at the gastroesophageal junction and the stricture was dilated using dilator. Multiple erosions were found in the gastric body and gastric antrum with multiple biopsies performed and the duodenal mucosa showed no abnormalities into duodenal bulb. HOSPITAL COURSE: Basically, this is a 64-year-old male, who presented to the emergency department complaining of abdominal pain, heartburn belching, gas over the last few days, In the ER, they ordered a CT of the abdomen and pelvis with results as above. It shows small-bowel obstructions so we decided to place an NG tube and put it to suction. He was with that for couple days and then the abdominal x-ray shows that the abdomen showed no signs of obstruction. Patient's NG tube was removed. We started with a clear liquid diet which this patient tolerated very well. We changed to GI soft diet and he reports some sensation of food getting stuck in the throat so with history of prior esophageal dilation, we consulted GI who performed the procedure as above. Patient stayed overnight after the procedure. He was doing completely fine so he was discharged in stable condition. He will be seen by the GI doctor in 4 weeks. DISCHARGE PHYSICAL EXAMINATION: Vital Signs: Temperature 97.5 degrees, heart rate 62, respiratory rate 18, blood pressure 116/64. O2 saturation 97% on room air. General: This is a 64-year-old male, lying in bed, in no acute distress. Cardiovascular: S1, S2 heard. No murmurs, gallops, or rubs. Regular rate and rhythm. Respiratory: Exam clear bilaterally to auscultation. No work of breathing or using accessory muscles. Abdomen: Soft, nontender to palpation. Bowel sounds present. No organomegaly. Extremities: No clubbing, cyanosis, or edema. Peripheral pulses present in both legs. Neurological: The patient is alert and oriented x3. Moves 4 extremities. DISCHARGE DISPOSITION: Home to self-care. FOLLOW-UP INSTRUCTIONS: Follow up with Dr. Ng, in 4 weeks. LIST OF MEDICATIONS: 1. Sucralfate 1 g p.o. q. 6 hours for 1 month. 2. MiraLAX 1 pack p.o. b.i.d. 3. Lactulose 30 mg p.o. b.i.d. as needed for constipation. 4. Flexeril 10 mg, 1 tablet p.o. 3 times per day. 5. Multivitamin 1 tablet p.o. daily. 6. Calcium carbonate/vitamin D3 1 tablet p.o. daily. 7. Fish oil capsules. One tab p.o. daily. 8. Tamsulosin 0.4 mg 1 tablet p.o. daily. 9. Aspirin 81 mg 1 tablet p.o. daily. 10. Zanaflex 4 mg, 1 tablet p.o. at bedtime as needed for muscle pain. 11. Trazodone 100 mg 1 tablet p.o. at bedtime. 12. [place] 10, 1-2 tablets p.o. every 6 hours as needed for pain. 13. Pantoprazole 40 mg 1 tablet p.o. twice daily. TIME SPENT AT DISCHARGE: Time discharging this patient was 35 minutes. cc: Andrade Allen MD
== END 2019-10-30 09:55 | disposition home health service (06) | DRG 390 ==
LOC: ED 04:24 → EDIPHOLD 09:08 → 4N 15:30
PROVIDERS: ATTEND Internal Medicine